=== PATIENT | female | born 1980 | race Caucasian/White ===

== ENCOUNTER 2023-05-12 21:27 | Inpatient (IN) | payer OTHER, SELFPAY ==
--- NOTE | 2023-05-12 | ECG_ITS ---
Test Reason : chest pain Blood Pressure : / mmHG Vent. Rate : 121 BPM Atrial Rate : 121 BPM P-R Int : 124 ms QRS Dur : 074 ms QT Int : 356 ms P-R-T Axes : 059 065 039 degrees QTc Int : 505 ms Sinus tachycardia Possible Left atrial enlargement Borderline ECG No previous ECGs available Referred By: Generic ED Physician Electronically Signed By:LATISHA COOPER
--- NOTE | ~2023-05-12 | CT_ITS ---
EXAMINATION: CT ABDOMEN AND PELVIS WITH CONTRAST CLINICAL INFORMATION: Abdominal pain. COMPARISON: None available. TECHNIQUE: Multidetector volumetric images were obtained from the superior aspect of the liver through the pubic symphysis following administration 85 mL of Omnipaque 350 intravenous contrast. Sagittal and coronal reformatted images were obtained on the technologist's workstation. Oral contrast: No This CT examination was performed using dose optimization techniques as appropriate, variously including the following: *Automated exposure control *Adjustment of mA and/or kV according to patient size (this includes techniques or standardized protocols for targeted exams where dose is matched to indication/reason for exam; i.e. extremities or head) *Use of iterative reconstruction technique DLP: 570 mGy-cm FINDINGS: LUNG BASES: The visualized lung bases are unremarkable. LIVER, GALLBLADDER, AND BILIARY TREE: The liver is normal in size, shape, and attenuation. No focal hepatic lesion or biliary ductal dilatation is present. The gallbladder is unremarkable with no evidence of radiopaque gallstones, gallbladder wall thickening, or obvious pericholecystic inflammatory changes. PANCREAS: Unremarkable. SPLEEN: Unremarkable. ADRENAL GLANDS: Unremarkable. KIDNEYS AND URETERS: The kidneys are normal in size, shape, and attenuation. No hydronephrosis, hydroureter, or calculi seen. No perinephric stranding. BLADDER: Unremarkable. GASTROINTESTINAL TRACT: There are distended diffusely thickened small bowel loops throughout. There also appears to be mild thickening of the descending colon and fluid throughout the remaining colon. The appendix is not seen. ABDOMINAL WALL: No significant hernia is appreciated. LYMPH NODES: Normal. VASCULAR: Unremarkable. PELVIC VISCERA: The uterus is large and lobular with multiple myometrial masses measuring up to 8.5 cm. There is a small amount of free fluid within the pelvis. OSSEOUS STRUCTURES: Unremarkable. CT/CT abdomen pelvis w IV con IMPRESSION: 1. Diffusely thickened small bowel loops and mild thickening of the descending colon with fluid throughout the remaining colon. Findings are consistent with enteritis and colitis. 2. Enlarged uterus with multiple myometrial masses measuring up to 8.5 cm, likely fibroids. Fleischner guidelines were followed.
--- NOTE | ~2023-05-12 | CT_ITS ---
EXAMINATION: CT ABDOMEN AND PELVIS WITH CONTRAST CLINICAL INFORMATION: Persistent abdominal pain and distention. COMPARISON: CT abdomen and pelvis with IV contrast 05/13/2023 TECHNIQUE: Multidetector volumetric images were obtained from the superior aspect of the liver through the pubic symphysis following administration 85 mL of Omnipaque 350 intravenous contrast. Sagittal and coronal reformatted images were obtained on the technologist's workstation. Oral contrast: No This CT examination was performed using dose optimization techniques as appropriate, variously including the following: *Automated exposure control *Adjustment of mA and/or kV according to patient size (this includes techniques or standardized protocols for targeted exams where dose is matched to indication/reason for exam; i.e. extremities or head) *Use of iterative reconstruction technique DLP: 577 mGy-cm FINDINGS: LUNG BASES: There is mild atelectatic changes left lung base. The heart size is normal. There are bilateral augmented breasts. LIVER, GALLBLADDER, AND BILIARY TREE: The liver is normal in size, shape, and attenuation. No focal hepatic lesion or biliary ductal dilatation is present. The gallbladder is unremarkable with no evidence of radiopaque gallstones, gallbladder wall thickening, or obvious pericholecystic inflammatory changes. PANCREAS: Unremarkable. SPLEEN: Unremarkable. ADRENAL GLANDS: Unremarkable. KIDNEYS AND URETERS: The kidneys are normal in size, shape, and attenuation. No hydronephrosis, hydroureter, or calculi seen. No perinephric stranding. BLADDER: Unremarkable. GASTROINTESTINAL TRACT: There is scattered stool, gas and air-fluid level seen in colon and the small bowel loops without distention. Appendix is normal caliber. The stomach is nondistended. No free fluid or free air seen. ABDOMINAL WALL: Small medical hernia containing fat. LYMPH NODES: Normal. VASCULAR: Unremarkable. PELVIC VISCERA: The fundus is significantly enlarged with multiple fibroids lesions with different attenuation. The largest hypoattenuating lesion in the lower fundus measures 5.4 x 5.8 cm and 37 Hounsfield units. The second largest lesion at the top of the fundus is hyperdense and measures 6.0 x 7.41 cm and 82 Hounsfield units likely vascular. There are additional smaller several fibroids visualized. There is moderate mass effect on the urinary bladder and bilateral ureters from fibroid uterus. OSSEOUS STRUCTURES: Mild degenerative disc changes with spondylosis L5-S1 disc level. No aggressive lytic or sclerotic process seen. CT/CT abdomen pelvis w IV con IMPRESSION: Significantly enlarged uterus with multiple moderate to large fibroids and differing density. The highest density lesion measures 82 HU and likely hypervascular. The second largest lesion is hypodense measuring 37 Hounsfield units. Recommend [employer]TER consultation. Mild bibasilar atelectasis. Fleischner guidelines were followed.
--- NOTE | ~2023-05-12 | US_ITS ---
EXAMINATION: US PELVIS CLINICAL INFORMATION: Uterine leiomyomas. COMPARISON: CT abdomen/pelvis from 05/14/2023. TECHNIQUE: Ultrasound of the pelvis is performed using both transabdominal and transvaginal transducers along with Doppler. Transvaginal imaging is performed due to inadequate visualization transabdominally. FINDINGS: Uterus: Large leiomyomatous uterus. On the transabdominal images, the uterus measures approximately 16.5 x 10.5 x 10 cm (cervix to fundus x x AP transverse dimension). The cervix is normal. The myometrial echotexture is heterogeneous due to presence of multiple leiomyomas. Intramural leiomyomas include the followin.9 x 4.9 x 5.9 cm within the anterior uterine body 2.9 x 3.4 x 4 cm within the anterior uterine body 3.8 x 3.7 x 3.9 cm within the posterior uterine body 3.4 x 2.7 x 3.2 cm within the posterior uterine body 5.4 x 3.8 x 3.7 cm within the posterior uterine body The endometrium is not well seen. It had estimated AP thickness of 0.[address] images from 05/14/2023 Adnexa: Neither ovary is identified, likely obscured by bowel. No sonographic evidence of adnexal mass. No pelvic free fluid. US/US pelvic complete IMPRESSION: * Large heterogeneous leiomyomatous uterus. * The endometrium is not well seen; it is likely mildly compressed, distorted by presence of surrounding leiomyomas. * The ovaries are not sonographically visualized.
[2023-05-12 21:47] VITALS: BP 135/95; PULSE 126; RESP 18; TEMP 36.7; O2SAT 98; BMI 31.6
[2023-05-12 22:25] LABS: MANUAL DIFF FLAG NO
[2023-05-12 22:27] LABS: Basophils Percent Auto 0.4 % (0-2); Eosinophils Percent Auto 0.4 % (0-4); Hemoglobin 12.9 g/dl (12.0-16.0); Imm Gran Abs Auto 0.03 X10*3/uL (0.00-0.03); Imm Gran Pct Auto 0.3 % (0.0-0.4); Lymphocytes Absolute Auto 1.8 X10*3/uL (1.2-4.9); Lymphocytes Percent Auto 15.6 % (20-40); Mean Corpuscular HGB Conc 33.1 g/dl (31.0-35.0); Mean Corpuscular Hemoglobin 26.8 pg (27.0-33.0); Mean Corpuscular Volume 80.9 fL (80.0-98.0); Mean Platelet Volume 10.5 fL (9.4-12.3); Monocytes Absolute Auto 0.7 X10*3/uL (0.1-1.2); Monocytes Percent Auto 5.7 % (2-11); Neutrophils Absolute Auto 8.8 x10*3/uL (2.0-8.3); Neutrophils Percent Auto 77.6 % (45-73); Platelet Count 412 X10*3/uL (160-400); Red Blood Count 4.82 X10*6/uL (4.20-5.50); Red Cell Distribution Width 15.9 % (11.0-16.0); White Blood Count 11.3 X10*3/uL (4.8-10.8)
[2023-05-12 22:32] VITALS: BP 126/79; PULSE 102; RESP 16; TEMP 36.4; O2SAT 97
[2023-05-12 22:42] LABS: Alanine Aminotransferase 18 U/L (0-31); Albumin Level 3.9 g/dL (3.5-5.0); Alkaline Phosphatase 51 U/L (39-117); Anion Gap 17 (12-20); Aspartate Amino Transferase 19 U/L (5-31); Bilirubin Direct 0.1 mg/dL (0.0-0.5); Bilirubin Total 0.4 mg/dL (0.0-1.0); Blood Urea Nitrogen 7 mg/dL (9-16); Calcium 9.6 mg/dL (8.4-10.2); Carbon Dioxide 20 mmol/L (22-29); Chloride 101 mmol/L (96-108); Creatinine Clr Calc Pharmacy 83.4; Estimated Glomerular Filt Rate > 60; Glucose Random 109 mg/dL (60-115); Lipase 13 U/L (8-78); Potassium 3.8 mmol/L (3.3-5.1); Sodium 134 mmol/L (135-145); Total Protein 7.5 g/dL (6.5-8.0)
--- NOTE | 2023-05-12 23:58 | ED_ITS ---
HPI - General Adult General Chief complaint: Abdominal Pain Stated complaint: constipated 1 week/stomach pain Time Seen by Provider: 05/12/23 23:19 History of Present Illness HPI narrative: The patient says that about 8 days ago she developed what she thought was some kind of a stomach flu with nausea and vomiting for about 24 hours. She had some loose stools at the time. She felt unwell for a few more days and then started to feel better started to feel worsening abdominal pains and had trouble passing stools. She said that she was passing only ?rabbit pellets. ? Tonight she was very uncomfortable and came to the hospital. She says she has had this level of discomfort for about 24 hours. Related Data Home Medications Medication Instructions Recorded Confirmed atorvastatin 20 mg tablet 20 mg PO DAILY 05/13/23 05/13/23 gabapentin 300 mg capsule 300 mg PO DAILY 05/13/23 05/13/23 gabapentin 300 mg capsule 300 mg PO DAILY 05/13/23 05/13/23 hydroxyzine HCl 50 mg tablet 50 mg PO BEDTIME PRN Insomnia 05/13/23 05/13/23 lisinopril 10 mg tablet 10 mg PO DAILY 05/13/23 05/13/23 Allergies Allergy/AdvReac Type Severity Reaction Status Date / Time acetaminophen [From VICODIN] Allergy Unknown UNKNOWN Unverified 12/22/19 19:37 hydrocodone [HYDROCODONE] Allergy Unknown UNKNOWN Unverified 12/22/19 19:37 oxycodone [OXYCODONE] Allergy Unknown UNKNOWN Unverified 12/22/19 19:37 prednisone Allergy Flushing Verified 05/12/23 21:53 Most opiates Allergy Unknown Facial Uncoded 09/13/18 00:00 hives Review of Systems 2 Review of Systems: Yes all other systems are reviewed and are negative PMFSH Past Medical History Medical History (Updated 05/13/23 @ 05:16 by Jade Low MD) Neuroma of right lower extremity Hyperlipidemia Essential hypertension Surgical History (Updated 05/13/23 @ 04:57 by Jade Low MD) H/O right wrist surgery Hx of right BKA Social History Social History Patient Tobacco Use Status: Never used Tobacco Physical Exam ED Vital Signs: Vital Signs - 24 hr 05/12/23 21:47 05/12/23 22:32 05/13/23 01:23 Temperature 98.1 F 97.6 F 98.3 F Pulse Rate 126 H 102 H 96 Respiratory Rate 18 16 17 Blood Pressure 135/95 H 126/79 124/80 Pulse Oximetry 98 97 99 Oxygen Delivery Method Room Air Room Air Room Air 05/13/23 03:57 Temperature Pulse Rate 97 Respiratory Rate 18 Blood Pressure 153/84 H Pulse Oximetry 98 Oxygen Delivery Method Room Air BMI result Body Mass Index 31.6 Const Other: The patient is awake, alert, pleasant, cooperative. She looked quite uncomfortable however. HENMT Other: The face is symmetrical. ?Mucous membranes moist. Eyes Other: Pupils are round equal, conjunctivae are clear, extraocular movements intact Neck Other: Moving her neck easily Resp Effort & Inspection: normal respiratory effort Auscultation: clear to auscultation bilaterally Cardio Rate: regular rate Rhythm: regular rhythm Heart sounds: S1 normal heart sound present and S2 normal heart sound present GI Other: The patient's abdomen seems distended and diffusely tender. Back/Spine/Pelvis Other: No CVA percussion tenderness Skin Other: Skin is dry and unremarkable Neuro Other: The patient is awake and alert. Speech is clear. Face is symmetrical. She moves her extremities symmetrically. She seems grossly neurologically intact. Extrem Other: The patient has a right lower extremity [id number] amputation Medications Administered Generic Name Dose Route Start Last Admin Trade Name Freq PRN Reason Stop Dose Admin Lactated Ringer's 1,000 mls @ 125 mls/hr 05/13/23 04:15 05/13/23 04:29 Lr IVCONT 125 mls/hr .Q8H ELIZABETH Administration Simethicone 160 mg 05/13/23 04:05 05/13/23 04:29 Simethicone 80 Mg Tab.Chew PO 05/13/23 15:01 160 mg TID ELIZABETH Administration Discontinued Medications Generic Name Dose Route Start Last Admin Trade Name Freq PRN Reason Stop Dose Admin Diphenhydramine HCl 25 mg 05/13/23 04:40 05/13/23 04:51 Diphenhydramine Hcl 50 Mg/Ml Vial IVPUSH 05/13/23 04:41 25 mg ONCE ONE Administration Sodium Chloride 1,000 mls @ 999 mls/hr 05/12/23 23:45 05/13/23 01:06 Ns IV 02/07/24 00:45 Infused .Q1H1M ELIZABETH Infusion Iohexol 85 ml 05/13/23 01:09 05/13/23 01:09 Iohexol 350 Mg/Ml 100 Ml Infus..Btl IV 05/13/23 01:10 85 ml ONCE ONE Administration Ketorolac Tromethamine 15 mg 05/12/23 23:53 05/13/23 00:04 Ketorolac Tromethamine 15 Mg/Ml Vial IVPUSH 05/12/23 23:54 15 mg ONCE ONE Administration Ketorolac Tromethamine 30 mg 05/13/23 03:51 05/13/23 03:55 Ketorolac Tromethamine 30 Mg/Ml Vial IVPUSH 05/13/23 03:52 30 mg ONCE ONE Administration Morphine Sulfate 4 mg 05/13/23 04:40 05/13/23 04:51 Morphine Sulfate 4 Mg/Ml Cartridge IVPUSH 05/13/23 04:41 4 mg ONCE ONE Administration Protocol Medical Decision Making Medical Decision Making MDM Narrative: The patient is a very pleasant 43-year-old female whose only regular consistent medications are gabapentin and control pill although she was recently started on lisinopril and atorvastatin. She presents with about 9 days of gastrointestinal symptoms. Syndrome began with vomiting and has severe generalized abdominal pain. She feels that she is having trouble moving her bowels so she suspect she might be constipated. Clinically she looked much more uncomfortable than someone with simple constipation. Labs were done with a mild white count elevation and a mild C-reactive protein elevation. She has a CT scan of the abdomen and pelvis that shows diffuse enteritis and colitis. She was treated with ketorolac for pain with improvement. Given the degree of pain in the degree of inflammatory changes throughout virtually the entire bowel I think hospitalization is reasonable. I consulted the hospitalist and the patient will be admitted. Lab Data 05/12/23 22:09 05/13/23 04:57 Labs: Lab Results 05/12/23 05/12/23 Range/Units 22:09 23:42 WBC 11.3 H (4.8-10.8) X10*3/uL RBC 4.82 (4.20-5.50) X10*6/uL Hgb 12.9 (12.0-16.0) g/dl Hct 39.0 (37.0-47.0) % MCV 80.9 (80.0-98.0) fL MCH 26.8 L (27.0-33.0) pg MCHC 33.1 (31.0-35.0) g/dl RDW 15.9 (11.0-16.0) % Plt Count 412 H (160-400) X10*3/uL MPV 10.5 (9.4-12.3) fL Immature Gran % (Auto) 0.3 (0.0-0.4) % Neut % (Auto) 77.6 H (45-73) % Lymph % (Auto) 15.6 L (20-40) % [place] % (Auto) 5.7 (2-11) % Eos % (Auto) 0.4 (0-4) % Baso % (Auto) 0.4 (0-2) % Lymph # (Auto) 1.8 (1.2-4.9) X10*3/uL [place] # (Auto) 0.7 (0.1-1.2) X10*3/uL Eos # (Auto) 0.0 (0.0-0.4) X10*3/uL Baso # (Auto) 0.0 (0.0-0.2) X10*3/uL Abs Immat Gran (auto) 0.03 (0.00-0.03) X10*3/uL Absolute Neuts (auto) 8.8 H (2.0-8.3) x10*3/uL Absolute Nucleated RBC 0.000 (0.0-0.012) X10*3/uL Nucleated RBC % (auto) 0.0 (0.0-0.2) /100WBC Sodium 134 L (135-145) mmol/L Potassium 3.8 (3.3-5.1) mmol/L Chloride 101 (96-108) mmol/L Carbon Dioxide 20 L (22-29) mmol/L Anion Gap 17 (12-20) BUN 7 L (9-16) mg/dL Creatinine 0.77 (0.5-1.4) mg/dL Estim Creat Clear Calc 83.4 Estimated GFR > 60 Random Glucose 109 (60-115) mg/dL Calcium 9.6 (8.4-10.2) mg/dL Total Bilirubin 0.4 (0.0-1.0) mg/dL Direct Bilirubin 0.1 (0.0-0.5) mg/dL AST 19 (5-31) U/L ALT 18 (0-31) U/L Alkaline Phosphatase 51 (39-117) U/L C-Reactive Protein 7.09 H (< or = 0.50) mg/dL Total Protein 7.5 (6.5-8.0) g/dL Albumin 3.9 (3.5-5.0) g/dL Lipase 13 (8-78) U/L Urine Color Dark Yellow Urine Appearance Turbid Urine pH 5.5 (5.0-9.0) Ur Specific [place] 1.025 (1.005-1.025) Urine Protein 30 (1+) H (Neg-Trace) mg/dL Urine Glucose (UA) Negative (Negative) mg/dL Urine Ketones 40 (Negative) mg/dL Urine Blood Negative (Negative) Urine Nitrite Negative (Negative) Ur Leukocyte Esterase Trace H (Negative) Urine RBC 0-2 (0-2) /HPF Urine WBC 6-10 (0-5) /HPF Ur Squamous Epith Cells >20 (0-2) /HPF Urine Bacteria 4+ (None Seen) Hyaline Casts 6-10 (0-2) /LPF Urine Test NEGATIVE (NEGATIVE) Discharge Plan Discharge Clinical Impression: Colitis, Enteritis Abdominal pain Qualifiers: Abdominal location: generalized Qualified Code(s): R10.84 - Generalized abdominal pain Patient Disposition: Admitted As Inpatient Interventions: Admission Worksheet (ED) Last Done: 05/13/23 05:01 Discharge Date/Time: 05/13/23 06:13
[2023-05-13 00:01] LABS: C Reactive Protein 7.09 mg/dL (< or = 0.50)
[2023-05-13] MEDS: 0.9 % Sodium Chloride 1,000 ML 999 ML IV (00:04)
[2023-05-13] MEDS: Ketorolac Tromethamine 15 MG/ML VIAL IVPUSH ×4 (00:04→23:09)
[2023-05-13 00:41] LABS: Appearance Urine Turbid; Color Urine Dark Yellow; Glucose Urine UA Negative (Negative); Leukocyte Esterase Urine Trace (Negative); Nitrite Urine Negative (Negative); PH 5.5 (5.0-9.0); Specific Gravity - Urine 1.025 (1.005-1.025); UMIC TRIGGER UACC YES; Urine Blood Negative (Negative); Urine Ketones 40 mg/dL (Negative); Urine Protein 30 (1+) mg/dL (Neg-Trace)
[2023-05-13 00:51] LABS: UPreg QC Valid YES; Urine Pregnancy NEGATIVE (NEGATIVE)
[2023-05-13 00:53] LABS: Bacteria Urine 4+ (None Seen); RBC Urine 0-2 /HPF (0-2); Squamous Epithelial Cell Urine >20 /HPF (0-2); UACC Culture Trigger YES
[2023-05-13] MEDS: iohexoL 350 MG/ML 100 ML INFUS..BTL 85 ML IV (01:09)
[2023-05-13 01:23] VITALS: BP 124/80; PULSE 96; RESP 17; TEMP 36.8; O2SAT 99
[2023-05-13] MEDS: Ketorolac Tromethamine 30 MG/ML VIAL IVPUSH (03:55)
[2023-05-13 03:57] VITALS: BP 153/84; PULSE 97; RESP 18; O2SAT 98
[2023-05-13] MEDS: Lactated Ringers 1,000 ML 125 ML IVCONT ×3 (04:29→21:05)
[2023-05-13] MEDS: Simethicone 80 MG TAB.CHEW 160 MG PO ×4 (04:29→23:10)
--- NOTE | 2023-05-13 04:32 | P.HPHOSP_ITS ---
History of Present Illness Date of Service: 05/13/23 Attending physician on admission: Jade Low Chief Complaint: Abdominal pain Veronica Ash is a 43 years old woman with past medical history significant for essential hypertension and hyperlipidemia presents to the emergency department complaining of severe generalized abdominal pain that has been getting worse for the last couple of days. She mentioned that about 9 days ago she started to experience multiple events of vomiting and GI upset that subsequently subsided. This lasted for about 24 hours. At that time, she also had some events of loose stools. She felt better for a few days but then she started to experience abdominal bloating and generalized abdominal pain. She described the pain as intermittent. Lately, she has been having trouble defecating and said that the last time she tried to defecate she passed only rabbid pellets . She did not report headache, fever, vomiting chills. Denies shortness on breath or chest pain. She has no history of gastrointestinal issues and has no biological family members with inflammatory bowel disease. Denied alcohol abuse, illicit drug use or tobacco smoking. On April 30 she was started on atorvastatin and lisinopril for hyperlipidemia and hypertension, respectively. In the ED, she was found to have stable vital signs except for hypertension. Last blood pressure is 153/84. Her blood workup including CBC and CMP is remarkable for mild leukocytosis, 11.3, mild hyponatremia and elevated CRP. Urinalysis showed no evidence of urinary tract infection. Abdomen and pelvis CT scan showed diffusely thickened small bowel loops and mild thickening of the descending colon with fluid throughout the remaining colon; finding consistent with enteritis and colitis. ED tx: Benadryl 25 mg IV, morphine 4 mg IV, ketorolac 30 mg IV X2, 1 L bolus. Review of Systems 2 Review of Systems: All 12 systems were reviewed and normal except as noted in HPI. Neurologic: Denies Abnormal speech present [facility] Medical History (Updated 05/13/23 @ 05:16 by Jade Low MD) Neuroma of right lower extremity Hyperlipidemia Essential hypertension Surgical History (Updated 05/13/23 @ 04:57 by Jade Low MD) H/O right wrist surgery Hx of right BKA Social History Patient Tobacco Use Status: Never used Tobacco Meds Allergies Allergy/AdvReac Type Severity Reaction Status Date / Time acetaminophen [From VICODIN] Allergy Unknown UNKNOWN Unverified 12/22/19 19:37 hydrocodone [HYDROCODONE] Allergy Unknown UNKNOWN Unverified 12/22/19 19:37 oxycodone [OXYCODONE] Allergy Unknown UNKNOWN Unverified 12/22/19 19:37 prednisone Allergy Flushing Verified 05/12/23 21:53 Most opiates Allergy Unknown Facial Uncoded 09/13/18 00:00 hives Active Medications: Current Medications Heparin Sodium (Porcine) (Heparin Sodium,Porcine 5,000 Unit/Ml Vial) 5,000 unit SUBCUT Q8H [facility] Lactated Ringer's (Lr) 1,000 mls @ 125 mls/hr IVCONT .Q8H [facility] Last Admin: 05/13/23 04:29 Dose: 125 mls/hr Ondansetron HCl (Ondansetron Hcl 4 Mg/2 Ml Vial) 4 mg IVPUSH Q8H PRN PRN Reason: Nausea and Vomiting Simethicone (Simethicone 80 Mg Tab.Chew) 160 mg PO TID [facility] Stop: 05/13/23 15:01 Last Admin: 05/13/23 04:29 Dose: 160 mg Sodium Chloride (0.9 % Sodium Chloride Flush 3 Ml Syringe) 3 ml IVFLUSH QSHIFT [facility] Home Medications Medication Instructions Recorded Confirmed Last Taken Type atorvastatin 20 mg tablet 20 mg PO DAILY 05/13/23 05/13/23 Unknown History gabapentin 300 mg capsule 300 mg PO DAILY 05/13/23 05/13/23 Unknown History gabapentin 300 mg capsule 300 mg PO DAILY 05/13/23 05/13/23 Unknown History hydroxyzine HCl 50 mg tablet 50 mg PO BEDTIME PRN Insomnia 05/13/23 05/13/23 Unknown History lisinopril 10 mg tablet 10 mg PO DAILY 05/13/23 05/13/23 Unknown History Physical Exam 2 Vital Signs and Narrative: Vital Signs: Last Vital Signs Temp 98.3 F 05/13/23 01:23 Pulse 97 05/13/23 03:57 Resp 18 05/13/23 03:57 BP 153/84 H 05/13/23 03:57 Pulse Ox 98 05/13/23 03:57 O2 Del Method Room Air 05/13/23 03:57 BMI result Body Mass Index 31.6 Const: General: cooperative, healthy appearing, well groomed and other (Looks quite uncomfortable due to abdominal pain.) Nutritional Appearance: well nourished Orientation/consciousness: patient oriented x3 HEENT: Head: Yes normocephalic and Yes atraumatic Resp: Effort & Inspection: normal respiratory effort and able to speak in complete sentences Auscultation: clear to auscultation bilaterally Cardio: Rate: tachycardic Rhythm: regular rhythm Heart sounds: no murmurs GI: Inspection: Yes distended Palpation (GI): Firmness to palpation present (GI) and Tenderness to palpation present (GI) (Generalized) Auscultation: n ormal bowel sounds Skin: General skin exam: no rashes or lesions noted Neuro: General: patient oriented x3 Cranial nerves: Yes Bilaterally intact EOM present Speech: No Abnormal speech present Motor exam (neuro): Normal motor muscle tone present throughout Extrem: Other: Right below-knee amputation. Psych: Appearance: grossly normal Mental Status: mental status grossly normal Speech and movement: Normal speech and movement present Affect: n ormal affect Thought process: Normal thought process present Thought content: Normal thought content present Judgement: Good judgement present (Psych) Results Labs 05/12/23 22:09 05/12/23 22:09 Labs: Laboratory Results - last 24 hr 05/12/23 05/12/23 22:09 23:42 MCV 80.9 MCH 26.8 L MCHC 33.1 RDW 15.9 Plt Count 412 H MPV 10.5 Immature Gran % (Auto) 0.3 Neut % (Auto) 77.6 H Lymph % (Auto) 15.6 L [place] % (Auto) 5.7 Eos % (Auto) 0.4 Baso % (Auto) 0.4 Lymph # (Auto) 1.8 [place] # (Auto) 0.7 Eos # (Auto) 0.0 Baso # (Auto) 0.0 Abs Immat Gran (auto) 0.03 Absolute Neuts (auto) 8.8 H Absolute Nucleated RBC 0.000 Nucleated RBC % (auto) 0.0 Anion Gap 17 Estim Creat Clear Calc 83.4 Estimated GFR > 60 Random Glucose 109 Calcium 9.6 Total Bilirubin 0.4 Direct Bilirubin 0.1 AST 19 ALT 18 Alkaline Phosphatase 51 C-Reactive Protein 7.09 H Total Protein 7.5 Albumin 3.9 Lipase 13 Urine Color Dark Yellow Urine Appearance Turbid Urine pH 5.5 Ur Specific [place] 1.025 Urine Protein 30 (1+) H Urine Glucose (UA) Negative Urine Ketones 40 Urine Blood Negative Urine Nitrite Negative Ur Leukocyte Esterase Trace H Urine RBC 0-2 Urine WBC 6-10 Ur Squamous Epith Cells >20 Urine Bacteria 4+ Hyaline Casts 6-10 Urine Test NEGATIVE Imaging Radiologist's Impressions: Impressions Abdomen/Pelvis CT 05/13/23 01:20 IMPRESSION: 1. Diffusely thickened small bowel loops and mild thickening of the descending colon with fluid throughout the remaining colon. Findings are consistent with enteritis and colitis. 2. Enlarged uterus with multiple myometrial masses measuring up to 8.5 cm, likely fibroids. Fleischner guidelines were followed. Assessment and Plan (1) Enteritis: Status: Acute (2) Colitis: Status: Acute (3) Abdominal pain: Qualifiers: Abdominal location: generalized Qualified Code(s): R10.84 - Generalized abdominal pain Status: Acute (4) Essential hypertension: Status: Acute (5) Hyperlipidemia: Qualifiers: Hyperlipidemia type: unspecified Qualified Code(s): E78.5 - Hyperlipidemia, unspecified Status: Acute Plan Veronica Ash is a 43 years old woman admitted with: * Enteritis and colitis causing severe generalized abdominal pain, etiology unclear: Inflammatory bowel disease? Infectious? Admit to hospitalist service. Keep NPO. Supportive therapy with IV fluids and pain meds for now. Continue to monitor CRP. Check fecal calprotectin and stool cultures if possible. Gastroenterology consult for further recommendations. * Hyponatremia. Continue IV fluids. Continue to monitor sodium level. * Essential hypertension. Continue lisinopril. * Hyperlipidemia. Continue statin. * Right BKA neuropathy. Continue gabapentin. * Insomnia. Atarax as needed. DVT prophylaxis: Heparin subcut. Code status: Full. Patient will need hospitalization for at least 2 midnight for significant enteritis and colitis evaluation and treatment with IV fluids and pain medication. Patient also will need to be seen by gastroenterology service. Quality Stroke Does the patient have a stroke diagnosis?: No VTE Prior VTE?: No VTE Risk Level:: Medical - low VTE Device Contraindication: Treatment Not Indicated VTE Drug Contraindication: N/A - Med Ordered
[2023-05-13] MEDS: Morphine Sulfate 4 MG/ML CARTRIDGE IVPUSH (04:51)
[2023-05-13] MEDS: diphenhydrAMINE HCL 50 MG/ML VIAL 25 MG IVPUSH (04:51)
[2023-05-13 05:51] LABS: Alanine Aminotransferase 16 U/L (0-31); Albumin Level 3.3 g/dL (3.5-5.0); Alkaline Phosphatase 44 U/L (39-117); Anion Gap 15 (12-20); Aspartate Amino Transferase 17 U/L (5-31); Bilirubin Total 0.3 mg/dL (0.0-1.0); Blood Urea Nitrogen 5 mg/dL (9-16); Calcium 8.5 mg/dL (8.4-10.2); Carbon Dioxide 18 mmol/L (22-29); Chloride 106 mmol/L (96-108); Creatinine Clr Calc Pharmacy 98.9; Estimated Glomerular Filt Rate > 60; Glucose Random 105 mg/dL (60-115); Potassium 3.5 mmol/L (3.3-5.1); Sodium 135 mmol/L (135-145); Total Protein 6.2 g/dL (6.5-8.0)
[2023-05-13 06:12] VITALS: BP 132/78; PULSE 87; RESP 18; TEMP 36.2; O2SAT 97
[2023-05-13 06:24] VITALS: BMI 31.9
[2023-05-13 07:35] VITALS: BP 104/62; PULSE 83; RESP 16; TEMP 35.8; O2SAT 95
[2023-05-13] MEDS: Gabapentin 300 MG CAPSULE PO (08:16)
[2023-05-13] MEDS: lisinopriL 10 MG TABLET PO (08:17)
[2023-05-13] MEDS: Atorvastatin Calcium 20 MG TABLET PO (08:17)
[2023-05-13] MEDS: 0.9 % Sodium Chloride Flush 3 ML SYRINGE IVFLUSH ×2 (08:17→15:51)
--- NOTE | 2023-05-13 09:06 | MHC.CM.PN ---
PATIENT IS FROM HOME W/ SPOUSE AND 17 YR OLD SON. R BKA - USES [employer] FOR MOBILITY, NO PROSTHESIS D/T NERVE ISSUES INDEPENDENT W/ ADL'S. NO SERVICES. PCP: HYUN NAVARRO DO HCP: COMPLETED HCP NAMING AGENTS 1) /[facility] [phone] 2) [facility] [phone] DP: GOAL IS HOME SELF CARE, TO TRANSPORT. CM WILL CONTINUE TO FOLLOW FOR DC NEEDS.
[2023-05-13 10:50] LABS: C Reactive Protein 7.01 mg/dL (< or = 0.50)
[2023-05-13 10:58] LABS: Erythrocyte Sedimentation Rate 64 MM/HR (0-20)
--- NOTE | 2023-05-13 11:51 | PHA.MEDREC ---
Pharmacy Consult ? Medication Reconciliation Pharmacy has completed the medication reconciliation through claims hx and patient. Patient reported and confirmed all medications, states she does not use lorazepam.
--- NOTE | 2023-05-13 12:03 | PM.GICN ---
History of Present Illness Data of Consult Service Date: 05/13/23 Primary Care Provider: Fransico Durham DO, MD HPI Reason for consult: colitis, enteritis 43 years old woman with hx of essential hypertension and hyperlipidemia who I am seeing for assessment for coltiis and enteritis. PAtient noted 9 d ago episodes of diarrhea with non bloody emesis and lower and mid abodminal crampy pain sometimes 10/10 ins everity going up towards the top of the abdomen, worse with food. Has been relieved by morphine. The diarrhea and vomiting stopped but then she noted persisting pain which was worse yesterday along with constipation. She did not report headache, fever, chills. Denies shortness on breath or chest pain. She has no history of gastrointestinal issues and has no biological family members with inflammatory bowel disease. Denied alcohol abuse, illicit drug use or tobacco smoking. No sick contacts, no nsaid use and no ABX use in last 3 months. No one else at home or work with similar sx. LABS: mild leukocytosis, 11.3, mild hyponatremia and elevated CRP. Urinalysis showed no evidence of urinary tract infection. Imaging: Abdomen and pelvis CT scan: diffusely thickened small bowel loops and mild thickening of the descending colon with fluid throughout the remaining colon; finding consistent with enteritis and colitis. Review of Systems Review of Systems: Constitutional : No Weight loss, No Fever, No Chills ENT/Mouth : No sore throat, No Rhinorrhea Eyes: No Swelling, No Redness Cardiovascular : No Chest Pain, No SOB, No Edema Respiratory : No Cough, No Sputum, No Wheezing Gastrointestinal : see HPI Genitourinary : NO Dysuria, No Urinary Frequency, No Hematuria, No Urgency Musculoskeletal : No joint pain, No Myalgias, No Joint Swelling--right BKA Skin : No Skin Lesions, No rash Neuro : No Weakness, No Numbness, No Dizziness, No Headache Psych : No Anxiety/Panic, No Depression Heme/Lymph: No Bruising, No Lymphadenopathy Endocrine : No Polyuria, No Polydipsia All other systems reviewed and are negative. [facility] Past Medical History Medical History (Updated 05/13/23 @ 05:16 by Jdae Low MD) Neuroma of right lower extremity Hyperlipidemia Essential hypertension Family History Pertinent family history: uncle with CRC, no IBD Surgical History Surgical History (Updated 05/13/23 @ 04:57 by Jade Low MD) H/O right wrist surgery Hx of right BKA Social History Social History Household Members: Family Housing: Condominium Do you presently have visiting nurse or other home services: No Patient Tobacco Use Status: Never used Tobacco Second Hand Smoke Exposure: No service: No Meds Allergies Allergy/AdvReac Type Severity Reaction Status Date / Time acetaminophen [From VICODIN] Allergy Unknown UNKNOWN Unverified 12/22/19 19:37 hydrocodone [HYDROCODONE] Allergy Unknown UNKNOWN Unverified 12/22/19 19:37 oxycodone [OXYCODONE] Allergy Unknown UNKNOWN Unverified 12/22/19 19:37 prednisone Allergy Flushing Verified 05/12/23 21:53 Most opiates Allergy Unknown Facial Uncoded 09/13/18 00:00 hives Active Medications: Current Medications Atorvastatin Calcium (Atorvastatin Calcium 20 Mg Tablet) 20 mg PO DAILY [facility] Last Admin: 05/13/23 08:17 Dose: 20 mg Gabapentin (Gabapentin 300 Mg Capsule) 300 mg PO DAILY [facility] Last Admin: 05/13/23 08:16 Dose: 300 mg Heparin Sodium (Porcine) (Heparin Sodium,Porcine 5,000 Unit/Ml Vial) 5,000 unit SUBCUT Q8H [facility] Hydroxyzine HCl (Hydroxyzine Hcl 50 Mg Tablet) 50 mg PO BEDTIME PRN PRN Reason: Insomnia Lactated Ringer's (Lr) 1,000 mls @ 125 mls/hr IVCONT .Q8H [facility] Last Admin: 05/13/23 04:29 Dose: 125 mls/hr Ketorolac Tromethamine (Ketorolac Tromethamine 15 Mg/Ml Vial) 15 mg IVPUSH Q6H PRN PRN Reason: Pain, Severe (Pain Scale 7-10) Lisinopril (Lisinopril 10 Mg Tablet) 10 mg PO DAILY [facility]; Protocol Last Admin: 05/13/23 08:17 Dose: 10 mg Ondansetron HCl (Ondansetron Hcl 4 Mg/2 Ml Vial) 4 mg IVPUSH Q8H PRN PRN Reason: Nausea and Vomiting Simethicone (Simethicone 80 Mg Tab.Chew) 160 mg PO TID [facility] Stop: 05/13/23 15:01 Last Admin: 05/13/23 08:17 Dose: 160 mg Sodium Chloride (0.9 % Sodium Chloride Flush 3 Ml Syringe) 3 ml IVFLUSH QSHIFT [facility] Last Admin: 05/13/23 08:17 Dose: 3 ml Home Medications Medication Instructions Recorded Confirmed Last Taken Type L norgest/E estradiol-E estrad 1 tab PO DAILY 05/13/23 05/13/23 Unknown History 0.15 mg-30 mcg (84)/10 mcg(7) tabs,3mos (Jaimiess) atorvastatin 20 mg tablet 20 mg PO DAILY 05/13/23 05/13/23 Unknown History gabapentin 300 mg capsule 300 mg PO DAILY 05/13/23 05/13/23 Unknown History hydroxyzine HCl 50 mg tablet 50 mg PO BEDTIME PRN Insomnia 05/13/23 05/13/23 Unknown History lisinopril 10 mg tablet 10 mg PO DAILY 05/13/23 05/13/23 Unknown History Physical Exam Vital Signs: Vital Signs: Last Vital Signs Temp 96.5 F L 05/13/23 07:35 Pulse 83 05/13/23 07:35 Resp 16 05/13/23 07:35 BP 104/62 05/13/23 07:35 Pulse Ox 95 05/13/23 07:35 O2 Del Method Room Air 05/13/23 07:35 BMI result Body Mass Index 31.9 EXAM: GENERAL: The patient is well developed and nontoxic. VITAL SIGNS:see workflow HEENT: Nonicteric sclerae, PERRLA, EOMI. Oropharynx clear. Moist mucous membranes. Conjunctivae appear well perfused. No thyroid mass. CHEST: Chest wall is nontender. HEART: Regular rate and rhythm without murmurs. LUNGS: Clear to auscultation bilaterally. ABDOMEN: Soft, positive bowel sounds, nontender, no organomegaly.no flank tenderness SKIN: No rash, no excessive bruising, petechiae, or purpura. NEUROLOGIC: Cranial nerves II-XII intact without motor/sensory deficit. MS: right BKA Psych: Appearance: grossly normal Results Labs 05/12/23 22:09 05/13/23 04:57 Labs: Short CBC 05/12/23 Range/Units 22:09 WBC 11.3 H (4.8-10.8) X10*3/uL Hgb 12.9 (12.0-16.0) g/dl Hct 39.0 (37.0-47.0) % Plt Count 412 H (160-400) X10*3/uL BMP 05/12/23 05/13/23 22:09 04:57 Sodium 134 L 135 Potassium 3.8 3.5 Chloride 101 106 Carbon Dioxide 20 L 18 L BUN 7 L 5 L Creatinine 0.77 0.65 Calcium 9.6 8.5 D Liver Function 05/12/23 05/13/23 Range/Units 22:09 04:57 Total Bilirubin 0.4 0.3 (0.0-1.0) mg/dL Direct Bilirubin 0.1 (0.0-0.5) mg/dL AST 19 17 (5-31) U/L ALT 18 16 (0-31) U/L Alkaline Phosphatase 51 44 (39-117) U/L Albumin 3.9 3.3 L (3.5-5.0) g/dL Urine 05/12/23 Range/Units 23:42 Urine Color Dark Yellow Urine Appearance Turbid Urine pH 5.5 (5.0-9.0) Ur Specific [place] 1.025 (1.005-1.025) Urine Protein 30 (1+) H (Neg-Trace) mg/dL Urine Glucose (UA) Negative (Negative) mg/dL Imaging CT scan - abdomen: Attestation: I personally reviewed and interpreted this imaging study as follows: (thickened loops small bowel and distended stomach) Assessment and Plan (1) Enteritis: Status: Acute Plan 1/ Enteritis and colitis preceded by what seems to have been a gastroenteritis attack. Most likely to be infectious even though stool PCR testing is neg. PLAN: 1/ recommend ABX rx e.g levoflox and flagy and monitor clinically as well as biochem markers e.g CRP and WCC 2/ Advance diet as tolerated, if ongoing sx and no improvement then EGD and colonoscopy for assessment 3/ avoid nsaids and dehydration, low BP Procedures Date of Service Date of Service: 05/13/23
[2023-05-13 12:28] LABS: Leukocytes Stool Qualitative NEGATIVE (NEGATIVE)
[2023-05-13 12:55] LABS: CDiff Gene PCR NEGATIVE (Negative)
[2023-05-13 14:49] LABS: Adenovirus F 40/41 Not Detected (Not Detect.); Astrovirus Not Detected (Not Detect.); Campylobacter Not Detected (Not Detect.); Cryptosporidium Not Detected (Not Detect.); Cyclospora cayetanensis Not Detected (Not Detect.); E. coli EAEC Not Detected (Not Detect.); E. coli EPEC Not Detected (Not Detect.); E. coli ETEC Not Detected (Not Detect.); E. coli STEC Not Detected (Not Detect.); Entamoeba histolytica Not Detected (Not Detect.); Giardia lamblia Not Detected (Not Detect.); Plesiomonas shigelloides Not Detected (Not Detect.); Rotavirus A Not Detected (Not Detect.); Salmonella Not Detected (Not Detect.); Sapovirus Not Detected (Not Detect.); Shigella sp./EIEC Not Detected (Not Detect.); Vibrio Not Detected (Not Detect.); Vibrio Cholerae Not Detected (Not Detect.); Yersinia enterocolitica Not Detected (Not Detect.)
[2023-05-13 14:56] LABS: Norovirus GI/GII Not Detected (Not Detect.)
[2023-05-13 15:00] VITALS: BP 105/60; PULSE 91; RESP 18; TEMP 36.6; O2SAT 97
[2023-05-13] MEDS: levoFLOXacin/D5W 500 MG/100 ML PIGGYBACK 100 MG IV (15:47)
--- NOTE | 2023-05-13 16:01 | PM.EVENT ---
Event Note Date of Service: 05/13/23 Event Note: Patient already seen and examined by hospitalist service. Still has abdominal pain, says question of constipation than diarrhea Denies any nausea or vomiting Physical exam: Unchanged from H&P. Assessment plan Possible colitis: Elevated leukocytosis, abdominal pain, ESR elevation and CRP in addition CT abdomen shows colitis finding Will add Levaquin and Flagyl GI following Time Spent With Patient Time: Total time managing care of this patient today ____ minutes.
[2023-05-13] MEDS: metroNIDAZOLE/NS 500 MG/100 ML PIGGYBACK 100 MG IV ×2 (17:02→23:11)
[2023-05-13 19:41] VITALS: BP 95/60; PULSE 86; RESP 18; TEMP 36.6; O2SAT 99
[2023-05-14 03:31] VITALS: BP 103/67; PULSE 84; RESP 16; TEMP 36.6; O2SAT 99
[2023-05-14] MEDS: hydrOXYzine HCL 50 MG TABLET PO (03:35)
[2023-05-14] MEDS: Heparin Sodium,Porcine 5,000 UNIT/ML VIAL 5000 UNIT SUBCUT ×3 (03:35→20:09)
[2023-05-14] MEDS: Lactated Ringers 1,000 ML 125 ML IVCONT ×2 (06:34→20:26)
[2023-05-14] MEDS: Ketorolac Tromethamine 15 MG/ML VIAL IVPUSH ×2 (06:38→14:38)
[2023-05-14 08:00] VITALS: BP 121/70; PULSE 86; RESP 16; TEMP 36.1; O2SAT 93
[2023-05-14] MEDS: lisinopriL 10 MG TABLET PO (08:18)
[2023-05-14] MEDS: Gabapentin 300 MG CAPSULE PO (08:19)
[2023-05-14] MEDS: Simethicone 80 MG TAB.CHEW 160 MG PO ×3 (08:19→20:41)
[2023-05-14] MEDS: 0.9 % Sodium Chloride Flush 3 ML SYRINGE IVFLUSH ×2 (08:19→20:10)
[2023-05-14] MEDS: Atorvastatin Calcium 20 MG TABLET PO (08:19)
[2023-05-14] MEDS: metroNIDAZOLE/NS 500 MG/100 ML PIGGYBACK 100 MG IV ×2 (08:21→17:36)
--- NOTE | 2023-05-14 14:40 | P.PNIM_ITS ---
Subjective Subjective Date of Service: 05/14/23 Interval History: colitis Review of Systems has abd pain somewhat improving No fever or chills. Physical Exam 2 Vital Signs: Vital Signs: Last Vital Signs Temp 96.9 F 05/14/23 08:00 Pulse 86 05/14/23 08:00 Resp 16 05/14/23 08:00 BP 121/70 05/14/23 08:00 Pulse Ox 93 05/14/23 08:00 O2 Del Method Room Air 05/14/23 08:00 BMI result Body Mass Index 31.9 Appearance: Alert.? Oriented X3.? cvs: rrr, [id number] , no murmur res: clear to auscultation ,no rhonchii or wheezing abd: no rebound or guarding ,moderate diffuse, bs present. ext pulses present , no cyanosis. neuro: axo3 , nonfocal. Objective Data Active Medications Atorvastatin Calcium (Atorvastatin Calcium 20 Mg Tablet) 20 mg PO DAILY [facility] Last Admin: 05/14/23 08:19 Dose: 20 mg Documented By: GENET Gabapentin (Gabapentin 300 Mg Capsule) 300 mg PO DAILY [facility] Last Admin: 05/14/23 08:19 Dose: 300 mg Documented By: GENET Heparin Sodium (Porcine) (Heparin Sodium,Porcine 5,000 Unit/Ml Vial) 5,000 unit SUBCUT Q8H [facility] Last Admin: 05/14/23 11:55 Dose: 5,000 unit Documented By: GENET Hydroxyzine HCl (Hydroxyzine Hcl 50 Mg Tablet) 50 mg PO BEDTIME PRN PRN Reason: Insomnia Last Admin: 05/14/23 03:35 Dose: 50 mg Documented By: ALLEN Lactated Ringer's (Lr) 1,000 mls @ 125 mls/hr IVCONT .Q8H [facility] Last Infusion: 05/14/23 13:25 Dose: 0 mls/hr Documented By: GENET Levofloxacin (Levaquin) 500 mg in 100 mls @ 100 mls/hr IV Q24H [facility] Last Infusion: 05/13/23 17:05 Dose: Infused Documented By: KOBE Metronidazole (Flagyl) 500 mg in 100 mls @ 100 mls/hr IV Q8H [facility] Last Infusion: 05/14/23 10:42 Dose: Infused Documented By: GENET Ketorolac Tromethamine (Ketorolac Tromethamine 15 Mg/Ml Vial) 15 mg IVPUSH Q6H PRN PRN Reason: Pain, Severe (Pain Scale 7-10) Last Admin: 05/14/23 06:38 Dose: 15 mg Documented By: ALLEN Lisinopril (Lisinopril 10 Mg Tablet) 10 mg PO DAILY [facility]; Protocol Last Admin: 05/14/23 08:18 Dose: 10 mg Documented By: GENET Pt Own (L Norgest/E. Estradiol-E.Estrad [ Jaimiess] 0.15 Mg-30 Mcg (84)/10 1 tab PO DAILY [facility] Last Admin: 05/14/23 08:19 Dose: 1 tab Documented By: GENET Ondansetron HCl (Ondansetron Hcl 4 Mg/2 Ml Vial) 4 mg IVPUSH Q8H PRN PRN Reason: Nausea and Vomiting Simethicone (Simethicone 80 Mg Tab.Chew) 160 mg PO QIDWMHS [facility] Last Admin: 05/14/23 11:57 Dose: Not Given Documented By: GENET Non-Admin Reason: Patient Refused Sodium Chloride (0.9 % Sodium Chloride Flush 3 Ml Syringe) 3 ml IVFLUSH QSHIFT [facility] Last Admin: 05/14/23 08:19 Dose: 3 ml Documented By: GENET Labs 05/12/23 22:09 05/13/23 04:57 Labs: Laboratory Results - last 24 hr 05/13/23 11:20 Stl C. cayetanensis PCR Not Detected Stool Rotavirus A PCR Not Detected Stl Adenov F 40/41 PCR Not Detected Stool Astrovirus (PCR) Not Detected Stool Campylobacter PCR Not Detected Stool Cryptosporidium PCR Not Detected Stl Sh Tox Pr E STEC PCR Not Detected Stool E coli O157 PCR Not applicable Stl Enterotoxigenic E PCR Not Detected Stool EPEC (PCR) Not Detected Stool EAEC (PCR) Not Detected Stl E. histolytica PCR Not Detected Stool Giardia Lamblia PCR Not Detected Stl P. shigelloides PCR Not Detected Stool Salmonella PCR Not Detected Stool Sapovirus (PCR) Not Detected Stl Shigella/EIEC PCR Not Detected St Y.enterocolitica PCR Not Detected Stool Vibrio (PCR) Not Detected Stl Vibrio cholerae PCR Not Detected Stl Norovirus GI/GII PCR Not Detected Microbiology Microbiology Results: Microbiology 05/13/23 Unknown Urine Culture - Final Urine clean catch - Urine mayes top Assessment and Plan (1) Enteritis: Status: Acute (2) Colitis: Status: Acute Plan 43 years old woman admitted with: Enteritis and colitis causing severe generalized abdominal pain, etiology unclear: Has leukocytosis, abdominal pain, CT abdomen shows possible colitis Continue Levaquin and Flagyl, stool studies needs to be sent. Hyponatremia. Continue IV fluids. Continue to monitor sodium level. Essential hypertension. Continue lisinopril. Hyperlipidemia. Continue statin. Right BKA neuropathy. Continue gabapentin. Insomnia. Atarax as needed. DVT prophylaxis: Heparin subcut. ongoing hospitalization need : significant enteritis and colitis evaluation and treatment with IV fluids and pain medication,iv antibiotics .and gastroenterology expert input. Quality Stroke Does the patient have a stroke diagnosis?: No VTE Prior VTE?: No VTE Risk Level:: Medical - low VTE Device Contraindication: Treatment Not Indicated VTE Drug Contraindication: N/A - Med Ordered
[2023-05-14] MEDS: levoFLOXacin/D5W 500 MG/100 ML PIGGYBACK 100 MG IV (14:44)
[2023-05-14 15:09] VITALS: BP 105/59; PULSE 87; RESP 16; TEMP 36.2; O2SAT 95
[2023-05-14 19:42] VITALS: BP 140/90; PULSE 108; RESP 18; TEMP 36.8; O2SAT 99
[2023-05-14] MEDS: Morphine Sulfate 4 MG/ML CARTRIDGE IVPUSH (20:09)
[2023-05-14] MEDS: diphenhydrAMINE HCL 50 MG/ML VIAL IVPUSH (20:09)
[2023-05-14 21:04] LABS: MANUAL DIFF FLAG NO
[2023-05-14 21:06] LABS: Basophils Percent Auto 0.7 % (0-2); Eosinophils Absolute Auto 0.1 X10*3/uL (0.0-0.4); Eosinophils Percent Auto 1.4 % (0-4); Hematocrit 30.3 % (37.0-47.0); Hemoglobin 9.7 g/dl (12.0-16.0); Imm Gran Abs Auto 0.02 X10*3/uL (0.00-0.03); Imm Gran Pct Auto 0.5 % (0.0-0.4); Lymphocytes Absolute Auto 1.1 X10*3/uL (1.2-4.9); Lymphocytes Percent Auto 26.8 % (20-40); Mean Corpuscular Hemoglobin 26.4 pg (27.0-33.0); Mean Corpuscular Volume 82.6 fL (80.0-98.0); Mean Platelet Volume 10.9 fL (9.4-12.3); Monocytes Absolute Auto 0.4 X10*3/uL (0.1-1.2); Monocytes Percent Auto 8.6 % (2-11); Neutrophils Absolute Auto 2.6 x10*3/uL (2.0-8.3); Platelet Count 290 X10*3/uL (160-400); Red Blood Count 3.67 X10*6/uL (4.20-5.50); Red Cell Distribution Width 15.9 % (11.0-16.0); White Blood Count 4.2 X10*3/uL (4.8-10.8)
[2023-05-14 21:33] LABS: Lactic Acid 0.9 mmol/L (0.5-2.0)
[2023-05-14 21:36] LABS: Alanine Aminotransferase 18 U/L (0-31); Albumin Level 3.4 g/dL (3.5-5.0); Alkaline Phosphatase 46 U/L (39-117); Anion Gap 15 (12-20); Aspartate Amino Transferase 23 U/L (5-31); Bilirubin Total 0.2 mg/dL (0.0-1.0); Blood Urea Nitrogen < 3 mg/dL (9-16); Calcium 8.7 mg/dL (8.4-10.2); Carbon Dioxide 19 mmol/L (22-29); Chloride 109 mmol/L (96-108); Creatinine Clr Calc Pharmacy 105.8; Estimated Glomerular Filt Rate > 60; Glucose Random 86 mg/dL (60-115); Potassium 3.7 mmol/L (3.3-5.1); Sodium 139 mmol/L (135-145); Total Protein 6.5 g/dL (6.5-8.0)
[2023-05-14] MEDS: LORazepam 0.5 MG TABLET PO (21:36)
[2023-05-14] MEDS: iohexoL 350 MG/ML 100 ML INFUS..BTL 85 ML IV (21:50)
[2023-05-14 22:00] LABS: C Reactive Protein 3.36 mg/dL (< or = 0.50)
[2023-05-15] MEDS: metroNIDAZOLE/NS 500 MG/100 ML PIGGYBACK 100 MG IV (00:44)
[2023-05-15 03:23] VITALS: BP 129/83; PULSE 85; RESP 18; TEMP 36.4; O2SAT 94
[2023-05-15] MEDS: Heparin Sodium,Porcine 5,000 UNIT/ML VIAL 5000 UNIT SUBCUT (04:22)
[2023-05-15] MEDS: Lactated Ringers 1,000 ML 125 ML IVCONT (04:23)
[2023-05-15 08:00] VITALS: BP 139/88; PULSE 93; RESP 17; TEMP 36.6; O2SAT 92
[2023-05-15] MEDS: Omeprazole 20 MG CAPSULE.DR PO ×2 (08:29→16:23)
[2023-05-15] MEDS: Simethicone 80 MG TAB.CHEW 160 MG PO ×4 (08:29→20:15)
[2023-05-15] MEDS: Gabapentin 300 MG CAPSULE PO (08:29)
[2023-05-15] MEDS: metroNIDAZOLE 500 MG TABLET PO ×2 (08:29→16:23)
[2023-05-15] MEDS: Atorvastatin Calcium 20 MG TABLET PO (08:29)
[2023-05-15] MEDS: lisinopriL 10 MG TABLET PO (08:29)
[2023-05-15] MEDS: 0.9 % Sodium Chloride Flush 3 ML SYRINGE IVFLUSH ×2 (08:29→15:59)
[2023-05-15 08:49] LABS: Hematocrit 30.4 % (37.0-47.0); Hemoglobin 9.8 g/dl (12.0-16.0)
--- NOTE | 2023-05-15 10:43 | P.CONOB_ITS ---
TIRE MOLD TESTER - CN: HPI Data of Consult Consult date: 05/15/23 Requesting Physician: Janet Appiah MD Primary Care Provider: Fransico Durham DO, MD Consult Narrative Narrative: I was consulted on Veronica Ash who is a 43 year old female who presented emergency room for days ago with few days history of nausea and vomiting abdominal pain and diarrhea, CT scan was suggestive of colitis/enteritis, the patient was started on Flagyl Levaquin and since then her symptoms have improved except for last night. CT scan on 05/13 and repeat on 05/14 showed improvement in the enteritis /colitis. Pelvic portion of the CT scan showed the following: PELVIC VISCERA: The fundus is significantly enlarged with multiple fibroids lesions with different attenuation. The largest hypoattenuating lesion in the lower fundus measures 5.4 x 5.8 cm and 37 Hounsfield units. The second largest lesion at the top of the fundus is hyperdense and measures 6.0 x 7.41 cm and 82 Hounsfield units likely vascular. There are additional smaller several fibroids visualized. There is moderate mass effect on the urinary bladder and bilateral ureters from fibroid uterus. The patient has a few years' history of pelvic pressure, dysmenorrhea and heavy menstrual cycles and has been on control pills which reduces the menstrual flow slightly. No vaginal discharge, no new sexual partner. Last co testing and mammogram were many years ago according to the patient, no recent melter caster follow-up cc:: CC: Janet Appiah MD OB [facility] Past Medical History Medical History (Updated 05/15/23 @ 11:37 by Matty Martinez MD) Neuroma of right lower extremity Hyperlipidemia Essential hypertension Surgical History Surgical History (Updated 05/13/23 @ 04:57 by Jade Low MD) H/O right wrist surgery Hx of right BKA Social History Social History Household Members: Family Housing: Condominium Do you presently have visiting nurse or other home services: No Patient Tobacco Use Status: Never used Tobacco Second Hand Smoke Exposure: No service: No Meds Allergies Allergy/AdvReac Type Severity Reaction Status Date / Time prednisone Allergy Flushing Verified 05/12/23 21:53 hydrocodone AdvReac Itching, Verified 05/14/23 22:21 facial hives oxycodone AdvReac itching, Verified 05/14/23 22:14 facial hive Most opiates AdvReac Intermediate Facial Uncoded 05/14/23 22:14 hives Active Medications: Current Medications Atorvastatin Calcium (Atorvastatin Calcium 20 Mg Tablet) 20 mg PO DAILY [facility] Last Admin: 05/15/23 08:29 Dose: 20 mg Gabapentin (Gabapentin 300 Mg Capsule) 300 mg PO DAILY [facility] Last Admin: 05/15/23 08:29 Dose: 300 mg Hydroxyzine HCl (Hydroxyzine Hcl 50 Mg Tablet) 50 mg PO BEDTIME PRN PRN Reason: Insomnia Last Admin: 05/14/23 03:35 Dose: 50 mg Ketorolac Tromethamine (Ketorolac Tromethamine 15 Mg/Ml Vial) 15 mg IVPUSH Q6H PRN PRN Reason: Pain, Moderate(Pain Scale 4-6) Levofloxacin (Levofloxacin 500 Mg Tablet) 500 mg PO Q24H [facility] Lisinopril (Lisinopril 10 Mg Tablet) 10 mg PO DAILY [facility]; Protocol Last Admin: 05/15/23 08:29 Dose: 10 mg Metronidazole (Metronidazole 500 Mg Tablet) 500 mg PO Q8H [facility] Last Admin: 05/15/23 08:29 Dose: 500 mg Pt Own (L Norgest/E. Estradiol-E.Estrad [ Jaimiess] 0.15 Mg-30 Mcg (84)/10 1 tab PO DAILY [facility] Last Admin: 05/15/23 08:30 Dose: Not Given Omeprazole (Omeprazole 20 Mg Capsule.Dr) 20 mg PO BID@0630,1630 [facility] Last Admin: 05/15/23 08:29 Dose: 20 mg Ondansetron HCl (Ondansetron Hcl 4 Mg/2 Ml Vial) 4 mg IVPUSH Q8H PRN PRN Reason: Nausea and Vomiting Simethicone (Simethicone 80 Mg Tab.Chew) 160 mg PO QIDWMHS [facility] Last Admin: 05/15/23 08:29 Dose: 160 mg Sodium Chloride (0.9 % Sodium Chloride Flush 3 Ml Syringe) 3 ml IVFLUSH QSHIFT [facility] Last Admin: 05/15/23 08:29 Dose: 3 ml Home Medications Medication Instructions Recorded Confirmed Last Taken Type L norgest/E estradiol-E estrad 1 tab PO DAILY 05/13/23 05/13/23 Unknown History 0.15 mg-30 mcg (84)/10 mcg(7) tabs,3mos (Jaimiess) atorvastatin 20 mg tablet 20 mg PO DAILY 05/13/23 05/13/23 Unknown History gabapentin 300 mg capsule 300 mg PO DAILY 05/13/23 05/13/23 Unknown History hydroxyzine HCl 50 mg tablet 50 mg PO BEDTIME PRN Insomnia 05/13/23 05/13/23 Unknown History lisinopril 10 mg tablet 10 mg PO DAILY 05/13/23 05/13/23 Unknown History TIRE MOLD TESTER Physical Exam Vitals Vital signs: Temp Pulse Resp BP Pulse Ox O2 Del Method 97.8 F 93 17 139/88 92 Room Air 05/15/23 08:00 05/15/23 08:00 05/15/23 08:00 05/15/23 08:00 05/15/23 08:00 05/15/23 08:00 BMI result Body Mass Index 31.9 Female Genitalia (Pelvic) Vulva: No lesions Vagina: Nontender, Normal discharge and No lesions Cervix: Grossly normal and No cervical motion tenderness Uterus: Nontender and Enlarged (Twenty weeks size) Adnexa/Parametria: Adnexal Tenderness: None, Adnexal Mass: None and Parametrial Tenderness: None TIRE MOLD TESTER - Results Labs 05/15/23 08:04 05/14/23 20:22 Labs: Short CBC 05/14/23 05/15/23 Range/Units 20:22 08:04 WBC 4.2 L (4.8-10.8) X10*3/uL Hgb 9.7 L D 9.8 L (12.0-16.0) g/dl Hct 30.3 L D 30.4 L (37.0-47.0) % Plt Count 290 D (160-400) X10*3/uL BMP 05/14/23 20:22 Sodium 139 Potassium 3.7 Chloride 109 H Carbon Dioxide 19 L BUN < 3 L Creatinine 0.61 Calcium 8.7 Liver Function 05/14/23 Range/Units 20:22 Total Bilirubin 0.2 (0.0-1.0) mg/dL AST 23 (5-31) U/L ALT 18 (0-31) U/L Alkaline Phosphatase 46 (39-117) U/L Albumin 3.4 L (3.5-5.0) g/dL Urine 05/12/23 Range/Units 23:42 Urine Color Dark Yellow Urine Appearance Turbid Urine pH 5.5 (5.0-9.0) Ur Specific [place] 1.025 (1.005-1.025) Urine Protein 30 (1+) H (Neg-Trace) mg/dL Urine Glucose (UA) Negative (Negative) mg/dL Urine Test NEGATIVE (NEGATIVE) Imaging CT scan - pelvis: Radiologist's impression: ITS Impressions Abdomen/Pelvis CT 05/13/23 01:20 IMPRESSION: 1. Diffusely thickened small bowel loops and mild thickening of the descending colon with fluid throughout the remaining colon. Findings are consistent with enteritis and colitis. 2. Enlarged uterus with multiple myometrial masses measuring up to 8.5 cm, likely fibroids. Fleischner guidelines were followed. Abdomen/Pelvis CT 05/14/23 21:57 IMPRESSION: Significantly enlarged uterus with multiple moderate to large fibroids and differing density. The highest density lesion measures 82 HU and likely hypervascular. The second largest lesion is hypodense measuring 37 Hounsfield units. Recommend TIRE MOLD TESTER consultation. Mild bibasilar atelectasis. Fleischner guidelines were followed. Assessment and Plan (1) Uterine myoma: Status: Acute Will order pelvic ultrasound. Discussed with the patient the results of the CT scan and the size of the myomas, the risk of myosarcoma and symptoms that are caused by myomas including but not limited to pelvic pain, pressure symptoms, abnormal uterine bleeding. In addition discussed with the patient options of treatment for myomas including: Serial ultrasounds periodically to follow-up on the size of the myoma while targeting the treatment against fibroids related symptoms ( control pills, Mirena IUD, progesterone treatment, GnRH agonist/antagonist, uterine artery embolization or endometrial ablation) versus surgical treatment including hysterectomy and or myomectomy. All pros and cons, risks and benefits of all options were discussed with the patient. Instructions given the patient to schedule a follow-up appointment in the outpatient office preop (2) Abdominal pain: Qualifiers: Abdominal location: generalized Qualified Code(s): R10.84 - Generalized abdominal pain Status: Acute The patient is clinical history, nontender pelvic exam, with no cervical motion tenderness uterine and or adnexal tenderness, low risk for STD exposure all point towards a GI cause of her abdominal pain as a cause of her admission, PID would be an unlikely cause , although Levaquin/Flagyl would cover the possibility of PID. (3) Abnormal uterine bleeding: Status: Acute Discussed with the patient the different causes of abnormal bleeding including thyroid disorders, uterine and ovarian pathology, endometrial hyperplasia, carcinoma and other ther potential causes. Instructions given the patient to schedule an outpatient office follow-up appointment for further workup including not limited to EMB , co testing, screening mammogram, and others All questions answered, the patient verbalized understanding
[2023-05-15] MEDS: Ketorolac Tromethamine 15 MG/ML VIAL IVPUSH ×2 (13:32→19:43)
--- NOTE | 2023-05-15 14:29 | MHC.CM.PN ---
EMR REVIEWED AND PER MD ROUNDS, PT MAY DC TODAY PENDING ABD PAIN/ETCHED CIRCUIT PROCESSOR CONSULT. CM WILL CONTINUE TO FOLLOW FOR PLAN.
--- NOTE | 2023-05-15 15:16 | HO.PM.IMPN ---
Subjective Subjective Date of Service: 05/15/23 Interval History: Abdominal pain similar Review of Systems No fever or chills Physical Exam Vital Signs: Vital Signs: Last Vital Signs Temp 97.8 F 05/15/23 08:00 Pulse 93 05/15/23 08:00 Resp 17 05/15/23 08:00 BP 139/88 05/15/23 08:00 Pulse Ox 92 05/15/23 08:00 O2 Del Method Room Air 05/15/23 08:00 BMI result Body Mass Index 31.9 Appearance: Alert.? Oriented X3.? cvs: [id number], [id number] , no murmur res: clear to auscultation ,no rhonchii or wheezing abd: no rebound or guarding ,moderate diffuse, bs present. ext pulses present , no cyanosis. neuro: axo3 , nonfocal. Objective Data Active Medications Atorvastatin Calcium (Atorvastatin Calcium 20 Mg Tablet) 20 mg PO DAILY [facility] Last Admin: 05/15/23 08:29 Dose: 20 mg Documented By: GENET Gabapentin (Gabapentin 300 Mg Capsule) 300 mg PO DAILY [facility] Last Admin: 05/15/23 08:29 Dose: 300 mg Documented By: GENET Hydroxyzine HCl (Hydroxyzine Hcl 50 Mg Tablet) 50 mg PO BEDTIME PRN PRN Reason: Insomnia Last Admin: 05/14/23 03:35 Dose: 50 mg Documented By: ALLEN Ketorolac Tromethamine (Ketorolac Tromethamine 15 Mg/Ml Vial) 15 mg IVPUSH Q6H PRN PRN Reason: Pain, Moderate(Pain Scale 4-6) Last Admin: 05/15/23 13:32 Dose: 15 mg Documented By: GENET Levofloxacin (Levofloxacin 500 Mg Tablet) 500 mg PO Q24H [facility] Lisinopril (Lisinopril 10 Mg Tablet) 10 mg PO DAILY [facility]; Protocol Last Admin: 05/15/23 08:29 Dose: 10 mg Documented By: GENET Metronidazole (Metronidazole 500 Mg Tablet) 500 mg PO Q8H [facility] Last Admin: 05/15/23 08:29 Dose: 500 mg Documented By: GENET Pt Own (L Norgest/E. Estradiol-E.Estrad [ Jaimiess] 0.15 Mg-30 Mcg (84)/10 1 tab PO DAILY [facility] Last Admin: 05/15/23 12:33 Dose: 1 tab Documented By: GENET Comments: needed OB input prior to administering Omeprazole (Omeprazole 20 Mg Capsule.) 20 mg PO BID@0630,1630 [facility] Last Admin: 05/15/23 08:29 Dose: 20 mg Documented By: GENET Ondansetron HCl (Ondansetron Hcl 4 Mg/2 Ml Vial) 4 mg IVPUSH Q8H PRN PRN Reason: Nausea and Vomiting Simethicone (Simethicone 80 Mg Tab.Chew) 160 mg PO QIDWMHS [facility] Last Admin: 05/15/23 12:33 Dose: 160 mg Documented By: GENET Sodium Chloride (0.9 % Sodium Chloride Flush 3 Ml Syringe) 3 ml IVFLUSH QSHIFT [facility] Last Admin: 05/15/23 08:29 Dose: 3 ml Documented By: GENET Labs 05/15/23 08:04 05/14/23 20:22 Labs: Laboratory Results - last 24 hr 05/14/23 05/14/23 05/15/23 20:22 21:14 05:39 MCV 82.6 MCH 26.4 L MCHC 32.0 RDW 15.9 Plt Count 290 D MPV 10.9 Immature Gran % (Auto) 0.5 H Neut % (Auto) 62.0 Lymph % (Auto) 26.8 [place] % (Auto) 8.6 Eos % (Auto) 1.4 Baso % (Auto) 0.7 Lymph # (Auto) 1.1 L [place] # (Auto) 0.4 Eos # (Auto) 0.1 Baso # (Auto) 0.0 Abs Immat Gran (auto) 0.02 Absolute Neuts (auto) 2.6 Absolute Nucleated RBC 0.000 Nucleated RBC % (auto) 0.0 Hold Purple Top SEE NOTE Anion Gap 15 Estim Creat Clear Calc 105.8 Estimated GFR > 60 Random Glucose 86 Lactic Acid 0.9 Calcium 8.7 Total Bilirubin 0.2 AST 23 ALT 18 Alkaline Phosphatase 46 C-Reactive Protein 3.36 H C-React Prot High Sens Cancelled Total Protein 6.5 Albumin 3.4 L 05/15/23 13:58 MCV MCH MCHC RDW Plt Count MPV Immature Gran % (Auto) Neut % (Auto) Lymph % (Auto) [place] % (Auto) Eos % (Auto) Baso % (Auto) Lymph # (Auto) [place] # (Auto) Eos # (Auto) Baso # (Auto) Abs Immat Gran (auto) Absolute Neuts (auto) Absolute Nucleated RBC Nucleated RBC % (auto) Hold Purple Top Anion Gap Estim Creat Clear Calc Estimated GFR Random Glucose Lactic Acid Calcium Total Bilirubin AST ALT Alkaline Phosphatase C-Reactive Protein 2.80 H C-React Prot High Sens Total Protein Albumin Microbiology Microbiology Results: Microbiology 05/13/23 Unknown Urine Culture - Final Urine clean catch - Urine mayes top Assessment and Plan (1) Enteritis: Status: Acute (2) Colitis: Status: Acute Plan 43 years old woman admitted with: Enteritis and colitis causing severe generalized abdominal pain, etiology unclear: Has leukocytosis, abdominal pain, CT abdomen shows possible colitis Continue Levaquin and Flagyl, stool studies needs to be sent. Uterine fibroids: Might also be contributing to above pain. Seen by regional director-lab testing sent, continue to monitor. Hyponatremia. Continue IV fluids. Continue to monitor sodium level. Essential hypertension. Continue lisinopril. Hyperlipidemia. Continue statin. Right BKA neuropathy. Continue gabapentin. Insomnia. Atarax as needed. DVT prophylaxis: Heparin subcut. ongoing hospitalization need : significant enteritis and colitis evaluation and treatment with IV fluids and pain medication,iv antibiotics .and gastroenterology /Artificial Plastic Eye Maker expert input. Quality Stroke Does the patient have a stroke diagnosis?: No VTE Prior VTE?: No VTE Risk Level:: Medical - low VTE Device Contraindication: Treatment Not Indicated VTE Drug Contraindication: N/A - Med Ordered
[2023-05-15 15:31] VITALS: BP 125/83; PULSE 80; RESP 18; TEMP 36.4; O2SAT 96
[2023-05-15] MEDS: levoFLOXacin 500 MG TABLET PO (15:57)
[2023-05-15 17:13] LABS: CT PCR NOT DETECTED (Not Detect.); NG PCR NOT DETECTED (Not Detect.)
[2023-05-15 20:00] VITALS: BP 131/79; PULSE 78; RESP 18; TEMP 37.1; O2SAT 98
[2023-05-16] MEDS: metroNIDAZOLE 500 MG TABLET PO ×3 (00:25→16:01)
[2023-05-16] MEDS: 0.9 % Sodium Chloride Flush 3 ML SYRINGE IVFLUSH ×3 (00:28→15:28)
[2023-05-16 03:38] VITALS: BP 126/71; PULSE 78; RESP 18; TEMP 36.7; O2SAT 98
[2023-05-16] MEDS: Omeprazole 20 MG CAPSULE.DR PO ×2 (06:45→16:01)
[2023-05-16 07:47] VITALS: BP 148/84; PULSE 90; RESP 14; TEMP 36.3; O2SAT 99
[2023-05-16] MEDS: lisinopriL 10 MG TABLET PO (08:37)
[2023-05-16] MEDS: Gabapentin 300 MG CAPSULE PO (08:37)
[2023-05-16] MEDS: Simethicone 80 MG TAB.CHEW 160 MG PO ×3 (08:37→16:01)
[2023-05-16] MEDS: Atorvastatin Calcium 20 MG TABLET PO (08:37)
--- NOTE | 2023-05-16 10:52 | P.PNIM_ITS ---
Subjective Subjective Date of Service: 05/16/23 Interval History: abd pain Review of Systems somewhat improving no fevers feels constipated Physical Exam 2 Vital Signs: Vital Signs: Last Vital Signs Temp 97.4 F 05/16/23 07:47 Pulse 90 05/16/23 07:47 Resp 14 05/16/23 07:47 BP 148/84 H 05/16/23 07:47 Pulse Ox 99 05/16/23 07:47 O2 Del Method Room Air 05/16/23 07:47 BMI result Body Mass Index 31.9 Appearance: Alert.? Oriented X3.? cvs: rrr, [id number] , no murmur res: clear to auscultation ,no rhonchii or wheezing abd: no rebound or guarding ,moderate diffuse, bs present. ext pulses present , no cyanosis. neuro: axo3 , nonfocal. Objective Data Active Medications Atorvastatin Calcium (Atorvastatin Calcium 20 Mg Tablet) 20 mg PO DAILY [facility] Last Admin: 05/16/23 08:37 Dose: 20 mg Documented By: CORBIN Docusate Sodium (Docusate Sodium 100 Mg Capsule) 100 mg PO BID [facility] Gabapentin (Gabapentin 300 Mg Capsule) 300 mg PO DAILY [facility] Last Admin: 05/16/23 08:37 Dose: 300 mg Documented By: CORBIN Hydroxyzine HCl (Hydroxyzine Hcl 50 Mg Tablet) 50 mg PO BEDTIME PRN PRN Reason: Insomnia Last Admin: 05/14/23 03:35 Dose: 50 mg Documented By: ALLEN Ketorolac Tromethamine (Ketorolac Tromethamine 15 Mg/Ml Vial) 15 mg IVPUSH Q6H PRN PRN Reason: Pain, Moderate(Pain Scale 4-6) Last Admin: 05/15/23 19:43 Dose: 15 mg Documented By: JOSE Levofloxacin (Levofloxacin 500 Mg Tablet) 500 mg PO Q24H [facility] Last Admin: 05/15/23 15:57 Dose: 500 mg Documented By: JOSE Lisinopril (Lisinopril 10 Mg Tablet) 10 mg PO DAILY [facility]; Protocol Last Admin: 05/16/23 08:37 Dose: 10 mg Documented By: CORBIN Metronidazole (Metronidazole 500 Mg Tablet) 500 mg PO Q8H [facility] Last Admin: 05/16/23 08:37 Dose: 500 mg Documented By: CORBIN Pt Own (L Norgest/E. Estradiol-E.Estrad [ Jaimiess] 0.15 Mg-30 Mcg (84)/10 1 tab PO DAILY [facility] Last Admin: 05/16/23 08:38 Dose: 1 tab Documented By: CORBIN Omeprazole (Omeprazole 20 Mg Capsule.) 20 mg PO BID@0630,1630 [facility] Last Admin: 05/16/23 06:45 Dose: 20 mg Documented By: ZULEYKA Ondansetron HCl (Ondansetron Hcl 4 Mg/2 Ml Vial) 4 mg IVPUSH Q8H PRN PRN Reason: Nausea and Vomiting Polyethylene Glycol (Polyethylene Glycol 3350 17 Gm Powd.Pack) 17 gm PO DAILY PRN PRN Reason: Constipation Simethicone (Simethicone 80 Mg Tab.Chew) 160 mg PO QIDWMHS [facility] Last Admin: 05/16/23 08:37 Dose: 160 mg Documented By: CORBIN Sodium Chloride (0.9 % Sodium Chloride Flush 3 Ml Syringe) 3 ml IVFLUSH QSHIFT [facility] Last Admin: 05/16/23 08:33 Dose: 3 ml Documented By: CORBIN Labs 05/15/23 08:04 05/14/23 20:22 Labs: Laboratory Results - last 24 hr 05/15/23 05/15/23 11:00 13:58 C-Reactive Protein 2.80 H Chlam trachomat DNA PCR NOT DETECTED N.gonorrhoeae DNA (PCR) NOT DETECTED Assessment and Plan (1) Enteritis: Status: Acute (2) Colitis: Status: Acute Plan 43 years old woman admitted with: Enteritis and colitis causing severe generalized abdominal pain, etiology unclear: crp is trending down from 7(05/12)-3.36(05/14)-2.8(05/15) leukocytosis trending down,stool studies needs to be sent when sarwat available. abdominal pain, CT abdomen shows possible colitis Continue Levaquin and Flagyl (intiated on 05/15) Uterine fibroids: Might also be contributing to above pain. Seen by senior manager-lab testing sent, continue to monitor. Hyponatremia. Continue IV fluids. Continue to monitor sodium level. Essential hypertension. Continue lisinopril. Hyperlipidemia. Continue statin. Right BKA neuropathy. Continue gabapentin. Insomnia. Atarax as needed. DVT prophylaxis: Heparin subcut. ongoing hospitalization need : significant enteritis and colitis evaluation and treatment with IV fluids and pain medication,iv antibiotics .and gastroenterology /Cryptologist expert input. Quality Stroke Does the patient have a stroke diagnosis?: No VTE Prior VTE?: No VTE Risk Level:: Medical - low VTE Device Contraindication: Treatment Not Indicated VTE Drug Contraindication: N/A - Med Ordered
[2023-05-16] MEDS: Docusate Sodium 100 MG CAPSULE PO (11:46)
[2023-05-16] MEDS: polyethylene glycoL 3350 17 GM POWD.PACK PO (11:46)
--- NOTE | 2023-05-16 12:57 | PM.DS ---
DS: Providers Provider Date of Service: 05/16/23 Date of admission: 05/13/23 03:59 Date of discharge: 05/16/23 Primary care physician: Fransico Durham DO, MD Consults: 05/13/23 05:00 Consult to Gastroenterology Routine Consulting Provider: Bib Aceves Reason for consultation: Enteritis and colitis/severe abdominal pain Has provider been notified: No 05/15/23 06:55 Consult to Obstetrics / Gynecology Routine Consulting Provider: Matty Martinez Reason for consultation: Severe abd pain/enlarged uterus/fibroids Has provider been notified: No Attending physician on discharge: Janet Appiah Discharging clinician: Janet Appiah DS: Diagnosis Discharge Diagnosis (1) Enteritis: Status: Acute (2) Colitis: Status: Acute DS: Summary Hospital Course Hospital Course: 43 years old woman with past medical history significant for essential hypertension and hyperlipidemia presents to the emergency department complaining of severe generalized abdominal pain that has been getting worse for the last couple of days. She mentioned that about 9 days ago she started to experience multiple events of vomiting and GI upset that subsequently subsided. This lasted for about 24 hours. At that time, she also had some events of loose stools. She felt better for a few days but then she started to experience abdominal bloating and generalized abdominal pain. She described the pain as intermittent. Lately, she has been having trouble defecating and said that the last time she tried to defecate she passed only rabbid pellets . She did not report headache, fever, vomiting chills. Denies shortness on breath or chest pain. She has no history of gastrointestinal issues and has no biological family members with inflammatory bowel disease. Denied alcohol abuse, illicit drug use or tobacco smoking. On April 30 she was started on atorvastatin and lisinopril for hyperlipidemia and hypertension, respectively. In the ED, she was found to have stable vital signs except for hypertension. Last blood pressure is 153/84. Her blood workup including CBC and CMP is remarkable for mild leukocytosis, 11.3, mild hyponatremia and elevated CRP. Urinalysis showed no evidence of urinary tract infection. Abdomen and pelvis CT scan showed diffusely thickened small bowel loops and mild thickening of the descending colon with fluid throughout the remaining colon; finding consistent with enteritis and colitis. ED tx: Benadryl 25 mg IV, morphine 4 mg IV, ketorolac 30 mg IV X2, 1 L bolus. Hospital course: Patient came to the hospital because of abdominal pain found to have leukocytosis, CT scan for abdomen-found to have enterocolitis, in addition also has uterine fibroids: Elevated ESR and CRP, Patient was started on IV antibiotics: Subsequently seen by GI-recommended to continue and IV antibiotics , also continued supportive care with IV fluid, pain medications: Patient seems to be improved significantly, tolerating diet, CRP also improving, leukocytosis as well improving, no fever: On discharge patient will be going home with p.o. Levaquin 500 mg daily, Flagyl 500 mg p.o. b.i.d.(both antibiotics for 5 more days). Patient in addition was seen by band saw operator: Patient is chlamydia and gonorrhea PCR negative,canidida ,gardenella and trichomonas dna -pending: Patient is to follow up outpatient with Dr. Martinez. Constipation: Added Colace and MiraLax as needed. plan: Please complete the course of p.o. Levaquin 500 mg daily, Flagyl 500 mg p.o. b.i.d.(both antibiotics for 5 more days). Follow-up with GI out patiently. Follow-up with band saw operator for uterine fibroid management outpatient. Above management discussed with the patient in detail length she understand and in agreement with the above plan, Assessment and plan coordination time spent 50 minute. Time Attestation Discharge coordination time: Greater than 30 minutes Quality: Safe Use of Opioids Does Pt have an Active Cancer Diagnosis on the Problem List?: No Quality: Stroke Does the patient have a stroke diagnosis?: No Physical Exam Vital Signs: Vital Signs: Last Vital Signs Temp 97.4 F 05/16/23 07:47 Pulse 90 05/16/23 07:47 Resp 14 05/16/23 07:47 BP 148/84 H 05/16/23 07:47 Pulse Ox 99 05/16/23 07:47 O2 Del Method Room Air 05/16/23 07:47 BMI result Body Mass Index 31.9 Appearance: Alert.? Oriented X3.? cvs: rrr, [id number] , no murmur res: clear to auscultation ,no rhonchii or wheezing abd: no rebound or guarding ,moderate diffuse, bs present. ext pulses present , no cyanosis. neuro: axo3 , nonfocal. DS: Data Data Completed and Pending Labs on day of discharge: Laboratory Results - last 24 hr 05/15/23 05/15/23 11:00 13:58 C-Reactive Protein 2.80 H Chlam trachomat DNA PCR NOT DETECTED N.gonorrhoeae DNA (PCR) NOT DETECTED Imaging Chest x-ray: Radiologist's impression: ITS Impressions Abdomen/Pelvis CT 05/13/23 01:20 IMPRESSION: 1. Diffusely thickened small bowel loops and mild thickening of the descending colon with fluid throughout the remaining colon. Findings are consistent with enteritis and colitis. 2. Enlarged uterus with multiple myometrial masses measuring up to 8.5 cm, likely fibroids. Fleischner guidelines were followed. Abdomen/Pelvis CT 05/14/23 21:57 IMPRESSION: Significantly enlarged uterus with multiple moderate to large fibroids and differing density. The highest density lesion measures 82 HU and likely hypervascular. The second largest lesion is hypodense measuring 37 Hounsfield units. Recommend TOOL ROOM GEAR MACHINE OPERATOR consultation. Mild bibasilar atelectasis. Fleischner guidelines were followed. Pelvis Ultrasound 05/15/23 14:46 IMPRESSION: * Large heterogeneous leiomyomatous uterus. * The endometrium is not well seen; it is likely mildly compressed, distorted by presence of surrounding leiomyomas. * The ovaries are not sonographically visualized. Discharge Plan Discharge Anticipated Discharge Date/Time: 05/16/23 11:45 Patient Disposition: Home, Self-Care Discharge Diagnosis: enteritis/colitis ,uterus fibroids.constipation Referrals: Fransico Durham DO, MD [Primary Care Provider] - 1 Week Discharge Medications: New metronidazole 500 mg Tablet 500 mg PO Q8H Qty: 10 0RF omeprazole 20 mg Capsule,Delayed Release(Dr/Ec) 20 mg PO DAILY Qty: 30 0RF levofloxacin 500 mg Tablet 500 mg PO Q24H Qty: 5 0RF docusate sodium 100 mg Capsule 100 mg PO BID Qty: 30 0RF polyethylene glycol 3350 17 gram Powder In Packet 17 g PO DAILY PRN (Reason: Constipation) Qty: 30 0RF Continued atorvastatin 20 mg tablet 20 mg PO DAILY gabapentin 300 mg capsule 300 mg PO DAILY lisinopril 10 mg tablet 10 mg PO DAILY hydroxyzine HCl 50 mg tablet 50 mg PO BEDTIME PRN (Reason: Insomnia) L norgest/e.estradiol-e.estrad [Carmina] 0.15 mg-30 mcg (84)/10 mcg (7) Tablets,Dose Pack,3 Month 1 tab PO DAILY Discharge Orders: Discharge Order (Routine); Ordered 05/16/23 Ordered By: Janet Appiah Diet: Advance to usual diet Activity on Discharge: As tolerated Stand Alone Forms: Patient Portal Discharge page Care Plan Goals: Patient came to the hospital because of abdominal pain found to have leukocytosis, CT scan for abdomen-found to have enterocolitis, in addition also has uterine fibroids: Elevated ESR and CRP, Patient was started on IV antibiotics: Subsequently seen by GI-recommended to continue and IV antibiotics , also continued supportive care with IV fluid, pain medications: Patient seems to be improved significantly, tolerating diet, CRP also improving, leukocytosis as well improving, no fever: On discharge patient will be going home with p.o. Levaquin 500 mg daily, Flagyl 500 mg p.o. b.i.d.(both antibiotics for 5 more days). Patient in addition was seen by band saw operator: Patient is chlamydia and gonorrhea PCR negative,canidida ,gardenella and trichomonas dna -pending: Patient is to follow up outpatient with Dr. Martinez. Constipation: Added Colace and MiraLax as needed Health Concerns: Please complete the course of p.o. Levaquin 500 mg daily, Flagyl 500 mg p.o. b.i.d.(both antibiotics for 5 more days). Follow-up with GI out patiently. Follow-up with band saw operator for uterine fibroid management outpatient. Plan of Treatment: As above. Assessment: As above.
--- NOTE | 2023-05-16 13:05 | MHC.CM.PN ---
PT WILL DC HOME TODAY WITH NO SERVICES TO TRANSPORT
[2023-05-16 14:26] LABS: BV Int Neg Control Negative (Negative); BV Int Pos Control Positive (Positive)
[2023-05-16] MEDS: levoFLOXacin 500 MG TABLET PO (15:27)
[2023-05-16 15:52] VITALS: BP 111/70; PULSE 95; RESP 18; TEMP 36.6; O2SAT 96
[2023-05-17 17:53] LABS: Calprotectin, Fecal 6 mcg/g
[2023-05-18 13:43] LABS: CRP High Sensitivity >10.0 mg/L
== END 2023-05-16 16:33 | disposition home or self-care (01) | DRG 760 ==
LOC: HO.ED 23:19 → HO.EDOVER 05-13 04:05 → HO.S3 05-13 04:52
PROVIDERS: Obstetrics & Gynecology; Admitting Provider Internal Medicine; Emergency Provider Emergency Medicine; PCP Internal Medicine; Visit Provider Internal Medicine
DX: D25.9 Leiomyoma of uterus, unspecified (principal); E87.1 Hypo-osmolality and hyponatremia; K52.9 Noninfective gastroenteritis and colitis, unspecified; G47.00 Insomnia, unspecified; I10 Essential (primary) hypertension; N93.9 Abnormal uterine and vaginal bleeding, unspecified; G62.9 Polyneuropathy, unspecified; E78.5 Hyperlipidemia, unspecified; K59.00 Constipation, unspecified; Z89.511 Acquired absence of right leg below knee; Z79.899 Other long term (current) drug therapy
CPT/HCPCS: 0353U; 36415; 74177; 76856; 80048; 80053; 80076; 81001; 81025; 83605; 83690; 83993; 85014; 85018; 85025; 85652; 86140; 86141; 87086; 87177; 87209; 87480; 87493; 87507; 87510; 87660; 89055; 93005; 99221; 99285; J1200; J1644; J1836; J1885; J1956; J2270; J7120; Q9967

== ENCOUNTER → 2023-05-12 22:03 | Outpatient (BNV) | payer OTHER, SELFPAY | PROVIDERS: Admitting Provider Internal Medicine; Emergency Provider Emergency Medicine; PCP Internal Medicine; Visit Provider Internal Medicine | DX: R00.0 Tachycardia, unspecified (principal) | CPT/HCPCS: 93010 ==

== ENCOUNTER → 2023-05-13 03:59 | Outpatient (BNV) | payer OTHER, SELFPAY | PROVIDERS: Admitting Provider Internal Medicine; Emergency Provider Emergency Medicine; PCP Internal Medicine; Visit Provider Internal Medicine Gastroenterology | DX: K52.9 Noninfective gastroenteritis and colitis, unspecified (principal) | CPT/HCPCS: 99222 ==

== ENCOUNTER → 2023-05-13 03:59 | Outpatient (BNV) | payer OTHER, SELFPAY | PROVIDERS: Admitting Provider Internal Medicine; Emergency Provider Emergency Medicine; PCP Internal Medicine; Visit Provider Obstetrics & Gynecology | DX: D25.9 Leiomyoma of uterus, unspecified (principal); R10.84 Generalized abdominal pain; N93.9 Abnormal uterine and vaginal bleeding, unspecified | CPT/HCPCS: 99222 ==

== ENCOUNTER → 2023-05-13 03:59 | Outpatient (BNV) | payer OTHER, SELFPAY | PROVIDERS: Admitting Provider Internal Medicine; Emergency Provider Emergency Medicine; PCP Internal Medicine; Visit Provider Internal Medicine | DX: K52.9 Noninfective gastroenteritis and colitis, unspecified (principal); R10.84 Generalized abdominal pain; I10 Essential (primary) hypertension; E78.5 Hyperlipidemia, unspecified | CPT/HCPCS: 99223; 99232; 99239; 99499 ==

== ENCOUNTER 2023-06-03 14:15 | Outpatient (REF) | payer OTHER, SELFPAY ==
[2023-06-11 03:14] LABS: HPV mRNA E6/E7 rflx Not Detected (Not Detected)
== END 2023-06-03 14:16 | disposition home or self-care (01) ==
LOC: HO.LNP 14:15
PROVIDERS: PCP Internal Medicine; Visit Provider Obstetrics & Gynecology
DX: Z12.4 Encounter for screening for malignant neoplasm of cervix (principal); Z11.51 Encounter for screening for human papillomavirus (HPV); N93.9 Abnormal uterine and vaginal bleeding, unspecified; D25.9 Leiomyoma of uterus, unspecified
CPT/HCPCS: 58100; 81025; 87624; 88142; 88305

== ENCOUNTER 2023-06-03 14:15 | Outpatient (AMB) | payer OTHER, SELFPAY ==
--- NOTE | 2023-06-03 14:34 | MHC.OFFVIS ---
Intake Vital Signs 06/03/23 14:40 BP 120/70 Intake Visit Reasons: Inpatient consult Human Resources Recruiter Required: No Information Interpreted: non-clinical & clinical Natural Resources Specialist: Natural Resources Specialist Present (Nayeli ALSTON) Accompanied by: Self / Same As Patient Allergies prednisone Allergy (Verified 06/03/23 14:38) Flushing hydrocodone Adverse Reaction (Verified 06/03/23 14:38) Itching, facial hives oxycodone Adverse Reaction (Verified 06/03/23 14:38) itching, facial hive Most opiates Adverse Reaction (Intermediate, Uncoded 06/03/23 14:38) Facial hives Is last menstrual period known: Yes Last menstrual period: 05/25/23 HPI HPI Comments History of Present Illness Details The patient is presenting for follow-up for an inpatient consult complaining of heavy menstrual cycles associated with passage of blood clots and pelvic cramping. Following workup was done 05/15/2021 H&H 9.8/30.4 GC/CT negative BV panel negative Pelvic ultrasound showed the following: Uterus: Large leiomyomatous uterus. On the transabdominal images, the uterus measures approximately 16.5 x 10.5 x 10 cm (cervix to fundus x x AP transverse dimension). The cervix is normal. The myometrial echotexture is heterogeneous due to presence of multiple leiomyomas. Intramural leiomyomas include the followin.9 x 4.9 x 5.9 cm within the anterior uterine body 2.9 x 3.4 x 4 cm within the anterior uterine body 3.8 x 3.7 x 3.9 cm within the posterior uterine body 3.4 x 2.7 x 3.2 cm within the posterior uterine body 5.4 x 3.8 x 3.7 cm within the posterior uterine body The endometrium is not well seen. It had estimated AP thickness of 0.[address] images from 05/14/2023 Adnexa: Neither ovary is identified, likely obscured by bowel. No sonographic evidence of adnexal mass. No pelvic free fluid. PFSH Medical History Neuroma of right lower extremity Hyperlipidemia Essential hypertension Surgical History H/O right wrist surgery Hx of right BKA Social History Household Members: Family Housing: Condominium Do you presently have visiting nurse or other home services: No Patient Tobacco Use Status: Never used Tobacco Second Hand Smoke Exposure: No service: No Female Reproductive History Menstrual Date of last menstrual period: 05/25/23 Review of Systems Const All systems reviewed & are unremarkable except as noted in HPI and below Card Reports as per HPI Resp Reports as per HPI GI Reports as per HPI and Reports no additional complaints Reports as per HPI Physical Exam Vital Signs: Last Vital Signs BP 120/70 06/03/23 14:40 Const General: cooperative, healthy appearing and comfortable Chest Chest palpation & inspection: normal inspection of the chest and normal palpation of entire chest wall Breast/axilla inspection: normal inspection of the breasts and normal inspection of the axillae Breast/axilla palpation: normal palpation of the breasts, normal palpation of the axillae and no axillary lymphadenopathy Resp Effort & Inspection: normal respiratory effort Auscultation: clear to auscultation bilaterally Percussion: percussion normal Cardio Palpation: normal PMI Rate: regular rate Rhythm: regular rhythm Heart sounds: no murmurs and no rubs Peripheral pulses: Peripheral pulses 2+ throughout GI Inspection: Yes normal to inspection Palpation (GI): Soft to palpation, nontender, no guarding, not rigid and No hepatosplenomegaly present Percussion: Yes normal to percussion Auscultation: normal bowel sounds Rectal Exam - Female: deferred General: Yes bladder normal to palpation External Female Exam: No lesion Speculum Exam - Vagina: normal appearance of the vagina, normal palpation, normal vaginal discharge and not erythematous Speculum Exam - Cervix: normal appearance of the cervix and normal palpation Bimanual exam- vagina & uterus: normal bimanual exam, normal palpation, bladder normal to palpation, consistency normal, normal palpation and enlarged Bimanual Exam- Adnexa, other: normal adnexae, no masses and no tenderness Office Procedures Endometrial Biopsy Details: The patient was counseled regarding the indication and benefits of endometrial sampling to rule out endometrial pathology including not limited to endometrial hyperplasia or endometrial cancer and others; The alternatives (Either do nothing vs. hysteroscopy D&C) & the risks were discussed with the patient including but not limited: pain, uterine perforation, bleeding, infection, possible injury to bladder, bowel, ureter, possible need for blood transfusion with all its possible risks. The patient verbalized understanding all questions answered and signed consent. Urine test done in the office was negative The patient was placed into the dorsal lithotomy position; a speculum was inserted in the vagina. Using aseptic technique for the procedure, the cervix was cleansed with Betadine. The anterior lip of the cervix was grasped with a single tooth tenaculum. The uterus was sounded to 7 cm with a 4 mm Pipelle was used. Tissues samples were obtained and placed in formalin, in a patient labeled container and sent to the pathology department. At the end of the procedure, there was minimal bleeding noted The patient tolerated the procedure well and was discharged in good condition with the following instructions: Nothing in the vagina until the bleeding stops. No sex until the bleeding stops, to call if any of the following occurs: fever (>100.4), flu-like symptoms, abdominal pain, heavy bleeding, four smelling vaginal discharge. The patient was instructed to schedule a Follow up appointment in 2 weeks to discuss pathology results of the biopsy and treatment options. This note was generated with a voice recognition program. Some errors may have been overlooked during the review of this note. Sometimes these errors may affect the content or meaning of a given sentence. [id number] Biopsy Results AMB Test Urine AMB Test Urine Negative Last Edit by Nayeli Paz CMA on 06/03/23 15:20 Results Reviewed Results Reviewed: Laboratory Last Values Tst Clinic Negative 06/03/23 15:20 Assessment & Plan Assessment & Plan (1) Abnormal uterine bleeding: Code(s): N93.9 - Abnormal uterine and vaginal bleeding, unspecified Plan: Screening mammogram, Co testing done, CBC, prolactin, TSH, HCG ordered. Discussed with the patient the different causes of abnormal bleeding including thyroid disorders, uterine and ovarian pathology, endometrial hyperplasia, carcinoma and other potential causes. Discussed with the patient the work up including CBC (to r/o anemia), TSH, prolactin , endometrial biopsy to r/o endometrial pathology. EMB done, see procedure note All questions answered and the patient verbalized understanding. Instructed the patient to schedule a follow-up appointment in 2 weeks. (2) Uterine myoma: Code(s): D25.9 - Leiomyoma of uterus, unspecified Plan: Discussed with the patient the results of the ultrasound and the size of the myomas. Discussed with the patient risk of myosarcoma and symptoms that are caused by myomas including but not limited to pelvic pain, pressure symptoms, abnormal uterine bleeding. In addition discussed with the patient options of treatment for myomas including: Serial ultrasounds periodically to follow-up on the size of the myoma while targeting the treatment against fibroids related symptoms ( control pills, Mirena IUD, progesterone treatment, GnRH agonist/antagonist, uterine artery embolization or endometrial ablation) versus surgical treatment including hysterectomy and or myomectomy. All pros and cons, risks and benefits of all options were discussed with the patient. The patient understands that delay in surgical treatment in case of myosarcoma can affect her prognosis, after further discussion, the patient decided to think about it and get back to us next visit Orders: Orders Complete Blood Count no Diff Today N93.9 - Abnormal uterine and vaginal bleeding, unspecified MM screening mammo BI Today Z12.31 - Encounter for screening mammogram for malignant neoplasm of breast Surgical Today N93.9 - Abnormal uterine and vaginal bleeding, unspecified Pap Smear Today N93.9 - Abnormal uterine and vaginal bleeding, unspecified AMB Endometrial Biopsy Today N93.9 - Abnormal uterine and vaginal bleeding, unspecified TSH reflex Free T4 Today N93.9 - Abnormal uterine and vaginal bleeding, unspecified Prolactin Today N93.9 - Abnormal uterine and vaginal bleeding, unspecified HCG Quantitative Today N93.9 - Abnormal uterine and vaginal bleeding, unspecified AMB HCG Urine Test Today Z32.02 - Encounter for test, result negative Coding Level of Care Code Est Pt Level 3 (31613) Diagnoses Abnormal uterine bleeding N93.9 Uterine myoma D25.9 CPT Codes Endometrial Biopsy - CPT: 14961-Nyrupbvkdro Biopsy ([id number])
[2023-06-03 14:40] VITALS: BP 120/70
== END 2023-06-03 15:16 | disposition home or self-care (01) ==
PROVIDERS: PCP Internal Medicine; Visit Provider Obstetrics & Gynecology
DX: N93.9 Abnormal uterine and vaginal bleeding, unspecified (principal); D25.9 Leiomyoma of uterus, unspecified; Z32.02 Encounter for pregnancy test, result negative
CPT/HCPCS: 58100; 99213

== ENCOUNTER 2023-06-03 15:36 | Outpatient (REF) | payer OTHER, SELFPAY ==
[2023-06-03 16:28] LABS: Hemoglobin 10.1 g/dl (12.0-16.0); Mean Corpuscular HGB Conc 32.6 g/dl (31.0-35.0); Mean Corpuscular Hemoglobin 25.8 pg (27.0-33.0); Mean Corpuscular Volume 79.1 fL (80.0-98.0); Mean Platelet Volume 10.6 fL (9.4-12.3); Platelet Count 317 X10*3/uL (160-400); Red Blood Count 3.92 X10*6/uL (4.20-5.50); Red Cell Distribution Width 14.9 % (11.0-16.0); White Blood Count 5.3 X10*3/uL (4.8-10.8)
[2023-06-03 18:09] LABS: HCG Quantitative < 2 mIU/mL; TSH reflex Free T4 0.41 uIU/mL (0.32-4.0)
[2023-06-04 14:19] LABS: Prolactin 14.9 ng/mL
== END 2023-06-03 15:37 | disposition home or self-care (01) ==
LOC: HO.LAB 15:36
PROVIDERS: PCP Internal Medicine; Visit Provider Obstetrics & Gynecology
DX: N93.9 Abnormal uterine and vaginal bleeding, unspecified (principal)
CPT/HCPCS: 36415; 84146; 84443; 84702; 85027

== ENCOUNTER 2023-06-09 07:59 | Outpatient (REF) | payer OTHER, SELFPAY ==
[2023-06-09 08:20] LABS: Hematocrit 32.1 % (37.0-47.0); Hemoglobin 10.5 g/dl (12.0-16.0); Mean Corpuscular HGB Conc 32.7 g/dl (31.0-35.0); Mean Corpuscular Hemoglobin 26.6 pg (27.0-33.0); Mean Corpuscular Volume 81.3 fL (80.0-98.0); Mean Platelet Volume 10.2 fL (9.4-12.3); Platelet Count 252 X10*3/uL (160-400); Red Blood Count 3.95 X10*6/uL (4.20-5.50); Red Cell Distribution Width 15.6 % (11.0-16.0); White Blood Count 5.7 X10*3/uL (4.8-10.8)
== END 2023-06-09 08:00 | disposition home or self-care (01) ==
LOC: HO.LAB 07:59
PROVIDERS: PCP Internal Medicine; Visit Provider Obstetrics & Gynecology
DX: N93.9 Abnormal uterine and vaginal bleeding, unspecified (principal)
CPT/HCPCS: 36415; 85027

== ENCOUNTER 2023-06-09 09:04 | Outpatient (AMB) | payer OTHER, SELFPAY ==
[2023-06-09 09:19] VITALS: BP 122/80; BMI 31.8
--- NOTE | 2023-06-09 09:19 | A.OFFVIS_ITS ---
Intake Vital Signs 06/09/23 09:19 Height 5 ft Weight 163 lb BMI 31.8 BP 122/80 Intake Visit Reasons: EMB/ok per Nayeli Direct Care Staffer Required: No Information Interpreted: non-clinical & clinical Housekeeper Caregiver: Housekeeper Caregiver Present (Nayeli) Allergies prednisone Allergy (Verified 06/09/23 09:20) Flushing hydrocodone Adverse Reaction (Verified 06/09/23 09:20) Itching, facial hives oxycodone Adverse Reaction (Verified 06/09/23 09:20) itching, facial hive Most opiates Adverse Reaction (Intermediate, Uncoded 06/09/23 09:20) Facial hives Post menopausal: No HPI HPI Comments History of Present Illness Details The patient is presenting for follow-up to discuss the results of her abnormal uterine bleeding workup and options of treatment. The patient has been having on and off vaginal bleeding since last visit. The following workup was done.: 06/03 H&H= 10.31, repeated today .08/06 2 point TSH, prolactin, hCG, GC and chlamydia were negative. Endometrial biopsy pathology showed the following: Benign proliferative endometrium with ectatic stromal vessels and focal breakdown; no atypia or carcinoma Co testing pending. Mammogram not scheduled yet. Pelvic ultrasound showed the following: Uterus: Large leiomyomatous uterus. On the transabdominal images, the uterus measures approximately 16.5 x 10.5 x 10 cm (cervix to fundus x x AP transverse dimension). The cervix is normal. The myometrial echotexture is heterogeneous due to presence of multiple leiomyomas. Intramural leiomyomas include the followin.9 x 4.9 x 5.9 cm within the anterior u terine body 2.9 x 3.4 x 4 cm within the anterior [place] body 3.8 x 3.7 x 3.9 cm within the posterior uterine body 3.4 x 2.7 x 3.2 cm within the posterior uterine body 5.4 x 3.8 x 3.7 cm within the posterior uterine body The endometrium is not well seen. It had estimated AP thickness of 0.[address] images from 05/14/2023 Adnexa: Neither ovary is identified, likely obscured by bowel. No sonographic evidence of adnexal mass. No pelvic free fluid. The patient is on iron sulfate 325 mg p.o. b.i.d. PFSH Medical History Neuroma of right lower extremity Hyperlipidemia Essential hypertension Surgical History H/O right wrist surgery Hx of right BKA Social History Household Members: Family Housing: Condominium Do you presently have visiting nurse or other home services: No Patient Tobacco Use Status: Never used Tobacco Second Hand Smoke Exposure: No service: No Female Reproductive History Menstrual control method: none Review of Systems Const All systems reviewed & are unremarkable except as noted in HPI and below Reports as per HPI and Reports no additional complaints GI Reports no additional complaints Reports no additional complaints Physical Exam Vital Signs: Last Vital Signs BP 122/80 06/09/23 09:19 BMI result Body Mass Index 31.8 Assessment & Plan Assessment & Plan (1) Abnormal uterine bleeding: Code(s): N93.9 - Abnormal uterine and vaginal bleeding, unspecified Plan: Discussed with the patient the results of the work up done and options of treatment including Lysteda, control pills, Mirena IUD, endometrial ablation, uterine artery embolization and hysterectomy. All pros, cons, risks and benefits if each option was discussed with the patient and the patient decided to go ahead with hysterectomy. Discussed with the patient the different types of hysterectomies including, vaginal, laparoscopic assisted vaginal, robotic assisted laparoscopic,& abdominal. All pros, cons, r/b of each approach were discussed the patient including evidence that morbidity is less and recovery is shorter with minimally invasive approaches to hysterectomy. Discussed with the patient the lack of availability of the robot DaVinci robot and/or minimally invasive ambulance mechanic specialist at [facility]. The patient requested to be referred to a tertiary care center. Refer to minimally invasive ambulance mechanic at [facility] . All questions answered, the patient verbalized understanding. Instructed the patient to call our office back in case a referral appointment is not scheduled, missed or canceled so that we will assist on rescheduling another appointment, the patient verbalized understanding agreed with the plan. Coding Level of Care Code Est Pt Level 3 (24548) Diagnoses Abnormal uterine bleeding N93.9
== END 2023-06-09 10:54 | disposition home or self-care (01) ==
PROVIDERS: PCP Internal Medicine; Visit Provider Obstetrics & Gynecology
DX: N93.9 Abnormal uterine and vaginal bleeding, unspecified (principal)
CPT/HCPCS: 99213

== ENCOUNTER 2023-06-16 07:17 | Outpatient (REF) | payer OTHER, SELFPAY ==
--- NOTE | ~2023-06-16 | MM_ITS ---
EXAMINATION: MM SCREENING DIGITAL BREAST TOMOSYNTHESIS, BILATERAL with breast implants CLINICAL INFORMATION: Screening. Asymptomatic. COMPARISON: Mammography: This is a baseline mammogram. TECHNIQUE: Digital mammography is performed in craniocaudal and mediolateral oblique views along with computer-aided detection (CAD). Digital breast tomosynthesis is performed in implant-displaced craniocaudal and implant-displaced mediolateral oblique views along with computer-aided detection (CAD). Synthesized 2D images are generated from the tomosynthesis. FINDINGS: There are scattered areas of fibroglandular density (ACR BI-RADS breast composition Category b). There are bilateral, mammographically intact, retropectoral breast implants. There are no significant masses, abnormal calcifications, or other abnormalities. There is an area of benign calcification at the edge of the left breast implant inferomedially. MM/MM tomosynthesis screen imp BI IMPRESSION: There are no significant changes from prior study. ASSESSMENT: BI-RADS BI-RADS 2 - Benign Findings RECOMMENDATION: Routine annual mammography screening. 1 year F/U This patient's information was entered into a reminder system with a target due date for their next mammogram.
== END 2023-06-16 07:18 | disposition home or self-care (01) ==
LOC: HO.MAMMO 07:17
PROVIDERS: PCP Internal Medicine; Visit Provider Obstetrics & Gynecology
DX: Z12.31 Encounter for screening mammogram for malignant neoplasm of breast (principal)
CPT/HCPCS: 77063; 77067

== ENCOUNTER → 2023-06-16 07:30 | Outpatient (BNV) | payer OTHER, SELFPAY | PROVIDERS: PCP Internal Medicine; Visit Provider Radiology Diagnostic Radiology | DX: Z12.31 Encounter for screening mammogram for malignant neoplasm of breast (principal) | CPT/HCPCS: 77063; 77067 ==